=== PATIENT | male | born 1950 | race Caucasian/White ===

== ENCOUNTER → 2023-12-09 15:03 | Outpatient (REF) | payer MEDICARE, BC, SELFPAY ==
[2023-12-09 16:09] LABS: % Eosinophils 4.5 % (0-6); % Immature Granulocytes 0.5 % (0-0.5); % Lymphocytes 26.3 % (20.5-51.1); % Monocytes 11.5 % (1.7-9.3); % Neutrophils 56.2 % (42.2-75.2); Absolute Basophils 0.1 10^3/uL (0-0.2); Absolute Eosinophils 0.3 10^3/uL (0-0.7); Absolute Lymphocytes 1.9 10^3/uL (1.2-3.4); Absolute Monocytes 0.8 10^3/uL (0.1-0.6); Absolute Neutrophils 4.1 10^3/uL (1.4-6.5); Hematocrit 39.3 % (39.0-52.0); Hemoglobin 13.3 g/dL (13.0-18.0); Mean Corp Hgb Conc. 33.8 g/dL (33.0-37.0); Mean Corpuscular Hgb 31.6 pg (27.0-31.0); Mean Corpuscular Volume 93.3 fL (80.0-94.0); Mean Platelet Volume 11.1 fL (7.4-10.4); Nucleated Red Blood Cells % 0 % (-); Platelet Count 232 10^3/uL (130-400); Red Blood Cell Count 4.21 10^6/uL (4.70-6.10); Red Cell Dist. Width 13.1 % (11.5-14.5); White Blood Cell Count 7.3 10^3/uL (4.8-10.8)
[2023-12-09 16:58] LABS: Blood Urea Nitrogen 22 mg/dl (9-20); Calcium 9.5 mg/dl (8.4-10.2); Carbon Dioxide 32 mmol/L (22-30); Chloride 97 mmol/L (98-107); Glucose 91 mg/dl (70-99); Potassium 4.2 mmol/L (3.5-5.1); Sodium 139 mmol/L (135-145); eGFR > 60.00
== END ==
LOC: REG 15:03
PROVIDERS: ATTENDING PHYSICIAN Specialist
DX: Z01.818 Encounter for other preprocedural examination (principal)
CPT/HCPCS: 36415; 80048; 85025

== ENCOUNTER 2024-11-13 06:03 | Day surgery (SDC) | payer MEDICARE, BC, SELFPAY ==
[2024-10-20 10:42] LABS: Hematocrit 37.9 % (39.0-52.0); Hemoglobin 12.6 g/dL (13.0-18.0); Mean Corp Hgb Conc. 33.2 g/dL (33.0-37.0); Mean Corpuscular Hgb 31.1 pg (27.0-31.0); Mean Corpuscular Volume 93.6 fL (80.0-94.0); Mean Platelet Volume 11.1 fL (7.4-10.4); Platelet Count 246 10^3/uL (130-400); Red Blood Cell Count 4.05 10^6/uL (4.70-6.10); Red Cell Dist. Width 13.1 % (11.5-14.5); White Blood Cell Count 5.3 10^3/uL (4.8-10.8)
[2024-10-20 11:19] LABS: ALT (SGPT) 21 U/L (0-50); AST (SGOT) 27 U/L (17-59); Albumin 4.2 g/dl (3.5-5.0); Alkaline Phosphatase 87 U/L (38-126); Blood Urea Nitrogen 17 mg/dl (9-20); Calcium 9.2 mg/dl (8.4-10.2); Carbon Dioxide 30 mmol/L (22-30); Chloride 101 mmol/L (98-107); Glucose 171 mg/dl (70-99); Potassium 4.5 mmol/L (3.5-5.1); Sodium 140 mmol/L (135-145); Total Bilirubin 0.6 mg/dl (0.2-1.3); eGFR > 60.00
[2024-10-20 13:52] VITALS: BMI 27.0
--- NOTE | 2024-10-30 15:36 | VNURNOTE ---
[facility] liaison called patient to review [facility] joint protocol and post op plans. No answer, left message. Referral in [facility].
--- NOTE | 2024-11-06 12:07 | VNURNOTE ---
Patient is scheduled for an elective R TKA on 11/13/24- he is a same day patient with Dr Peralta. Spoke with patient prior to surgery. Introduced role of [facility] Liaison. Patient reports that he lives with sig other in a second floor apartment.
There are 4 steps to enter and a flight of steps (12-15) to the apartment.
patient has a rolling walker.
PCP is Dr Buchanan.
Discussed [facility] joint protocol and post surgical plans.
Reviewed that he will have VN services initially and will then start outpatient PT.
Patient selects [facility] for his home care needs and will go to [facility] for outpatient PT. Patient thinks he's scheduled for 11/17.
Patient is in agreement with plan and states that sig other will be home with him. Advised to bring RW with him day of surgery. Referral [facility] in [facility].
Plan: [facility] per [facility] joint protocol then outpt PT on 11/17
[2024-11-07 12:04] VITALS: BMI 27.0
[2024-11-13] VITALS (12 sets, daily range): BP systolic 122–150; BP diastolic 59–79; BMI 27.0
[2024-11-13] MEDS: NORMOSOL-R/PLASMALYTE-A 1000 IV (06:28)
[2024-11-13] MEDS: CELEBREX 200 MG PO (06:28)
[2024-11-13] MEDS: TYLENOL 650 MG PO (06:28)
--- NOTE | 2024-11-13 07:13 | W.DS.TRANS ---
DC Summary - [employer]
-
Discharge Instructions:
Sleep Apnea Risk Intermediate
Discharge Diagnosis/Procedures Right knee replacement 11/13/24
Diet No restrictions,As tolerated
Activity As tolerated,With Walker
Driving Restrictions No driving
Bathing Restrictions OK to Shower
Other Services PT
Wound Care Aquacel dressing in place 7-10 days then
incision open to air
Instructions:
Stand-Alone Forms: SDS Total Hip and Knee D/C
Changes to Home Medications: Yes
Discharge Medications:
DC Medications w/original date entered in [facility]
dronedarone 400 mg tablet (Multaq) 400 mg PO BID 12/08/21
finasteride 5 mg tablet 5 mg PO DAILY 12/08/21
omega 4-pyo-vwj-fish oil 1,000 mg (120 mg-180 mg) capsule (Fish Oil) 1,000 mg PO BID 12/08/21
omeprazole 40 mg capsule,delayed release 40 mg PO DAILY 12/08/21
potassium chloride 10 mEq capsule,extended release 10 meq PO Q48H 12/08/21
tamsulosin 0.4 mg capsule (Flomax) 0.8 mg PO HS 12/08/21
arginine 1,000 mg-B12 16.6 mcg-folic acid 66.6 mcg-B6 3.3 mg tablet (L-Arginine Interlude's My Healthy World) 1 tab PO BID 11/07/24
carvedilol 25 mg tablet 25 mg PO BID 11/07/24
famotidine 20 mg tablet 20 mg PO DAILY 11/07/24
furosemide 40 mg tablet 40 mg PO DAILY 11/07/24
magnesium 250 mg tablet 250 mg PO DAILY 11/07/24
sfkbsbkx-iz-whfxy 300 mcg-K 60 mcg-lycop 600 mcg-lutein 300 mcg tablet (Centrum Silver Men) 1 tab PO DAILY 11/07/24
acetaminophen 500 mg capsule 1,000 mg (2 x 500 mg) PO Q6H PRN Pain #60 caps 11/13/24
apixaban 5 mg tablet (Eliquis) 2.5 mg (1/2 x 5 mg) PO BID Blood clot prevention/tx #0 tabs 11/13/24
dexamethasone 4 mg tablet 4 mg PO BID #7 tabs 11/13/24
docusate sodium 100 mg capsule (Colace) 100 mg PO BID #14 caps 11/13/24
mupirocin 2 % topical ointment 1 applic topical BID 11/13/24
ondansetron 4 mg disintegrating tablet 4 mg PO Q8H #14 tabs 11/13/24
oxycodone 5 mg tablet 5 mg PO Q6H PRN Pain #30 tabs 11/13/24
sennosides 8.6 mg tablet (Senokot) 8.6 mg PO BID PRN Constipation #14 tabs 11/13/24
Home Medication Changes
apixaban 5 mg tablet (Eliquis) 2.5 mg (1/2 x 5 mg) PO BID Blood clot prevention/tx #0 tabs 11/13/24
dexamethasone 4 mg tablet 4 mg PO BID #7 tabs 11/13/24
docusate sodium 100 mg capsule (Colace) 100 mg PO BID #14 caps 11/13/24
mupirocin 2 % topical ointment 1 applic topical BID 11/13/24
ondansetron 4 mg disintegrating tablet 4 mg PO Q8H #14 tabs 11/13/24
oxycodone 5 mg tablet 5 mg PO Q6H PRN Pain #30 tabs 11/13/24
sennosides 8.6 mg tablet (Senokot) 8.6 mg PO BID PRN Constipation #14 tabs 11/13/24
Pending Results: No
[2024-11-13] MEDS: DILAUDID 0.25 MG IV ×3 (09:11→09:39)
[2024-11-13] MEDS: ROXICODONE 5 MG PO (10:34)
[2024-11-13] MEDS: ANCEF 5 IV (10:56)
== END 2024-11-13 11:51 | disposition home or self-care (01) ==
LOC: SDS 06:03
PROVIDERS: ATTENDING PHYSICIAN Specialist; FAMILY PHYSICIAN Internal Medicine Geriatric Medicine; REFERRING PHYSICIAN Internal Medicine Cardiovascular Disease
DX: M17.11 Unilateral primary osteoarthritis, right knee (principal)
CPT/HCPCS: 27447; 36415; 73560; 80053; 83036; 85027; 87070; 97162; C1713; C1776

== ENCOUNTER → 2025-06-21 11:58 | Outpatient (REF) | payer BC, SELFPAY | LOC: HWRCS 11:58 | PROVIDERS: ATTENDING PHYSICIAN Internal Medicine Cardiovascular Disease; FAMILY PHYSICIAN Internal Medicine Geriatric Medicine | DX: I48.19 Other persistent atrial fibrillation (principal); I10 Essential (primary) hypertension; R94.31 Abnormal electrocardiogram [ECG] [EKG]; R60.0 Localized edema; R06.09 Other forms of dyspnea; R00.2 Palpitations | CPT/HCPCS: 78452; 93017; A9500; J2785 ==

== ENCOUNTER → 2025-08-02 09:06 | Outpatient (REF) | payer MEDICARE, BC, SELFPAY | LOC: RSP 09:06 | PROVIDERS: ATTENDING PHYSICIAN Nurse Practitioner Family | DX: R06.09 Other forms of dyspnea (principal) | CPT/HCPCS: 94060 ==

== ENCOUNTER → 2025-08-10 08:19 | Outpatient (REF) | payer MEDICARE, BC, SELFPAY ==
[2025-08-10 10:28] LABS: Hematocrit 39.0 % (39.0-52.0); Hemoglobin 12.5 g/dL (13.0-18.0); Mean Corp Hgb Conc. 32.1 g/dL (33.0-37.0); Mean Corpuscular Volume 92.6 fL (80.0-94.0); Nucleated Red Blood Cells % 0 % (-); Platelet Count 248 10^3/uL (130-400); Red Cell Dist. Width 13.7 % (11.5-14.5)
[2025-08-10 10:37] LABS: Glycohemoglobin (HgbA1c) 6.1 % (4.0-5.6)
[2025-08-10 10:50] LABS: CRP, Ultra Sensitive 6.44 mg/L (0.30-5.00)
[2025-08-10 11:07] LABS: ALT (SGPT) 22 U/L (0-50); AST (SGOT) 24 U/L (17-59); Albumin 4.4 g/dl (3.5-5.0); Alkaline Phosphatase 85 U/L (38-126); Blood Urea Nitrogen 18 mg/dl (9-20); Calcium 9.3 mg/dl (8.4-10.2); Carbon Dioxide 31 mmol/L (22-30); Chloride 104 mmol/L (98-107); Glucose 113 mg/dl (70-99); HDL Cholesterol 41 mg/dl; LDL Cholesterol, Calculated 98 mg/dl; Potassium 4.6 mmol/L (3.5-5.1); Sodium 140 mmol/L (135-145); Total Protein 7.6 g/dl (6.3-8.2); Very Low Density Lipoprotein 12 mg/dl (0-30); eGFR > 60.00
== END ==
LOC: REG 08:19
PROVIDERS: ATTENDING PHYSICIAN Nurse Practitioner Family; REFERRING PHYSICIAN Internal Medicine Cardiovascular Disease
DX: K21.9 Gastro-esophageal reflux disease without esophagitis (principal); R11.0 Nausea; K40.90 Unilateral inguinal hernia, without obstruction or gangrene, not specified as recurrent; I10 Essential (primary) hypertension; I48.0 Paroxysmal atrial fibrillation; Z87.891 Personal history of nicotine dependence; R73.03 Prediabetes
CPT/HCPCS: 36415; 80053; 80061; 83036; 84443; 85025; 85652; 86141

== ENCOUNTER → 2025-08-20 07:38 | Outpatient (REF) | payer MEDICARE, BC, SELFPAY ==
[2025-08-20 09:23] LABS: Hematocrit 39.6 % (39.0-52.0); Hemoglobin 12.9 g/dL (13.0-18.0); Mean Corp Hgb Conc. 32.6 g/dL (33.0-37.0); Mean Corpuscular Volume 94.1 fL (80.0-94.0); Nucleated Red Blood Cells % 0 % (-); Platelet Count 247 10^3/uL (130-400); Red Cell Dist. Width 13.7 % (11.5-14.5)
[2025-08-20 10:07] LABS: ALT (SGPT) 21 U/L (0-50); AST (SGOT) 26 U/L (17-59); Albumin 4.2 g/dl (3.5-5.0); Alkaline Phosphatase 86 U/L (38-126); Blood Urea Nitrogen 18 mg/dl (9-20); Calcium 9.1 mg/dl (8.4-10.2); Carbon Dioxide 32 mmol/L (22-30); Chloride 103 mmol/L (98-107); Glucose 101 mg/dl (70-99); Iron 101 ug/dl (49-181); Potassium 4.4 mmol/L (3.5-5.1); Sodium 140 mmol/L (135-145); Total Protein 7.4 g/dl (6.3-8.2); eGFR > 60.00
[2025-08-20 10:16] LABS: Total Iron Binding Capacity 384 ug/dl (261-462)
[2025-08-20 10:33] LABS: Ferritin 12.7 ng/ml (17.9-464.0)
== END ==
LOC: REG 07:38
PROVIDERS: ATTENDING PHYSICIAN Nurse Practitioner Family
DX: Z79.01 Long term (current) use of anticoagulants (principal); I10 Essential (primary) hypertension; D64.9 Anemia, unspecified
CPT/HCPCS: 36415; 80053; 82728; 83540; 83550; 85025

== ENCOUNTER 2025-08-30 10:31 | Inpatient (IN) | payer MEDICARE, BC, SELFPAY ==
[2025-08-30] VITALS (27 sets, daily range): BP systolic 117–186; BP diastolic 62–98; PULSE 2–91; BMI 25.0
--- NOTE | 2025-08-30 07:04 | ED.GENMED ---
History of Present Illness
<Gopi Celaya PA-C - Last Filed: 08/30/25 13:27>
General
Chief Complaint: Breathing Problem
Time Seen by Provider: 08/30/25 06:55
History of Present Illness
History of Present Illness:
75-year-old male with history of paroxysmal A-fib on Eliquis, hypertension, hyperlipidemia, and GERD presents to the emergency department for evaluation of shortness of breath and a productive cough for the past 3 days, spouse states that it became
dramatically worsened overnight. On arrival the patient's acute respiratory distress with 2-3 word dyspnea and audible crackles. He denies chest pain. No history of CHF. Did reportedly have pulmonary function testing performed approximately 1
month ago at this hospital. Prior smoker, 6 pack years. No fevers or chills.
Past History
<Gopi Celaya PA-C - Last Filed: 08/30/25 13:27>
Past History
ED Past Medical History: Arrthythmia, HTN and Hypercholesterolemia
ED Past Surgical History: Other
Social History
Tobacco: Former smoker
Drug: None
Personal: Single
Living: with family
Employment: Retired
Family History
Family History: Other
Review of Systems
<Gopi Celaya PA-C - Last Filed: 08/30/25 13:27>
Review of Systems
Allergies reviewed?: Yes
All Other Systems: ROS reviewed and negative except as documented in HPI and ROS
Phy Exam
<Gopi Celaya PA-C - Last Filed: 08/30/25 13:27>
Physical Exam
Physical Exam:
GEN: Ill-appearing in acute respiratory distress
HEENT: Oral mucosa moist, no scleral icterus
Cardiac: Regular rate, unable to auscultate due to send
Normal respiratory effort/lung sounds
Lung: Tachypneic with accessory muscle use audible crackles, crackles heard throughout all lung jo
MSK: No gross deformity or injuries
Skin: Good color, no pallor or jaundice, no rashes
Neuro: AO x3, moves all extremities freely
Psych: Appears anxious
Scores
<Gopi Celaya PA-C - Last Filed: 08/30/25 13:27>
Heart Failure Risk
Heart Failure Risk Score: Not Applicable
Course
<Gopi Celaya PA-C - Last Filed: 08/30/25 13:27>
Orders/Labs/Results
Orders:
Orders
08/30/25 07:00
EKG [Electrocardiogram (*1)] Stat
Reason for Study: Chest Pain
Blood Culture Q30M
JULIAN Source: Blood/Venous
Specimen Description:
CR Chest Portable - 1 View Urgent
Comment:
Reason For Exam: SOB
Reason Study Needs to be Portable: Patient Unstable
08/30/25 07:01
EKG- Treatment ONCE
Ipratropium/Albuterol Sulfate [Duoneb] 3 ml INH R NOW ONE
08/30/25 07:03
Ipratropium/Albuterol Sulfate [Duoneb] 3 ml .ROUTE .STK-MED ONE
Nitroglycerin 100 mg/250 ml [Nitroglycerin Premix] 100 mg in 250 ml .ROUTE .STK-MED
08/30/25 07:15
Nitroglycerin 100 mg/250 ml [Nitroglycerin Premix] 100 mg in 250 ml IV PER PROTOCOL
Initial dose in mcg/min, then titrate:: 20
Titrate to keep:: Other
Titrate to keep other:: BP <140; improved WOB
Titrate by mcg/min:: 5 mcg/min, may increase by 10 mcg/min if dose > 20 mcg/min
Frequency of titrations (minutes):: every 3-5 minutes
Maximum dose in mcg/min:: 200
Begin to taper infusion when:: Remained at goal for 2hrs
Taper by mcg/min:: 5 mcg/min
Frequency of taper (minutes) if patient maintains goal:: 30
Taper to off?: Yes
If infusion off & no longer maintaining goal:: Contact Provider
08/30/25 07:21
COVID-19 Antigen Urgent
Source: Nasal Swab
Complete Blood Count/With Diff Urgent
Comprehensive Metabolic Panel Urgent
NT-proBNP Urgent
Troponin I Urgent
Venous Blood Gas Urgent
%Oxygen/Room Air: 94
Influenza A+B Rapid Molecular Urgent
JULIAN Source: Nasal Swab
Specimen Description:
08/30/25 07:29
Furosemide [Lasix] 40 mg .ROUTE .STK-MED ONE
08/30/25 07:32
Furosemide [Lasix] 40 mg IV NOW STA
08/30/25 08:15
CefTRIAXone [Rocephin] 1,000 mg IV NOW STA
08/30/25 08:17
Dexamethasone Sod Phosphate [Decadron] 8 mg IV NOW STA
Ipratropium/Albuterol Sulfate [Duoneb] 3 ml INH R NOW STA
08/30/25 08:23
Lactic Acid Q4H
Comment: CANCEL 2nd LACTIC ACID IF 1st LACTIC ACID IS LESS THAN 2
Blood Culture Q30M
JULIAN Source: Blood/Venous
Specimen Description:
08/30/25 08:26
Sterile Water [Sterile Water For Injection] 20 ml .ROUTE .STK-MED
08/30/25 09:14
Echo 2D MMode Color/Doppler Routine
Reason for Study: SOB
PULMONARY CONSULT Routine
Consulting Provider: Sarah Ventura
Was physician already notified: Yes
Reason for consult: Resp failure
08/30/25 10:12
Admit/Transfer Patient As Directed
Co-Sign Provider:
Level of Care: Inpatient admission
Assign to:: IMU- Intermediate Care
Physician / Group: hospitalist
Diagnosis: resp failure
Reason for Hospitalization: resp failure
Expected length of stay greater than two midnights?: Yes
ELOS- Estimated Length of Stay in days: 2
I certify the patient meets the requirements for IP care: Yes
PRN Pain Medication Management As Directed
May give lesser potent ordered pain med per pt: Yes
preference::
Protocol:: Medication orders for pain may be administered in a
manner that supports deferring to patient preference
when the pt is:
- Requesting an ordered lesser potent pain medication.
Least to most potent pain medications are defined
as: acetaminophen < NSAID < tramadol < opioids
(morphine, oxycodone, hydromorphone).
- Requesting a lesser dose of the same medication IF
ORDERED.
- Requesting a less intrusive route of administration
if both routes are prescribed by the provider (PO <
IV).
08/30/25 12:15
Famotidine [Pepcid] 20 mg PO DAILY
Finasteride [Proscar] 5 mg PO DAILY
omeprazole 40 mg PO DAILY
08/30/25 20:00
Tamsulosin [Flomax] 0.4 mg PO BID
08/31/25 10:12
Ferrous Sulfate [Feosol] 325 mg PO MOWEFR
Abnormal Lab Results
08/30/25
07:21
WBC 11.8 H 10^3/uL
(4.8-10.8)
RBC 4.41 L 10^6/uL
(4.70-6.10)
MPV 10.9 H fL
(7.4-10.4)
Absolute Neuts (auto) 8.7 H 10^3/uL
(1.4-6.5)
Absolute Monos (auto) 1.1 H 10^3/uL
(0.1-0.6)
Lymphocytes % 10.7 L %
(20.5-51.1)
Monocytes % 9.7 H %
(1.7-9.3)
VBG pCO2 54 H mmHg
(35-48)
VBG pO2 128 H mmHg
(30-50)
VBG HCO3 28.5 H mmol/L
(22-27)
Glucose 120 H mg/dl
(70-99)
Total Protein 8.3 H g/dl
(6.3-8.2)
08/30/25 07:21
08/30/25 07:21
Vital Signs
Initial and Last Documented VS:
Initial Vital Signs
Pulse Resp BP Pulse Ox
64 20 174/84 94
08/30/25 06:51 08/30/25 06:51 08/30/25 06:51 08/30/25 06:51
Last Documented Vital Signs
Temp Pulse Resp BP Pulse Ox
98.2 F 94 33 172/93 92
08/30/25 07:00 08/30/25 12:36 08/30/25 11:00 08/30/25 12:36 08/30/25 11:00
<Leobardo Phillips MD - Last Filed: 08/30/25 09:39>
Orders/Labs/Results
Orders:
Orders
08/30/25 07:00
EKG [Electrocardiogram (*1)] Stat
Reason for Study: Chest Pain
Blood Culture Q30M
JULIAN Source: Blood/Venous
Specimen Description:
CR Chest Portable - 1 View Urgent
Comment:
Reason For Exam: SOB
Reason Study Needs to be Portable: Patient Unstable
08/30/25 07:01
EKG- Treatment ONCE
Ipratropium/Albuterol Sulfate [Duoneb] 3 ml INH R NOW ONE
08/30/25 07:03
Ipratropium/Albuterol Sulfate [Duoneb] 3 ml .ROUTE .STK-MED ONE
Nitroglycerin 100 mg/250 ml [Nitroglycerin Premix] 100 mg in 250 ml .ROUTE .STK-MED
08/30/25 07:15
Nitroglycerin 100 mg/250 ml [Nitroglycerin Premix] 100 mg in 250 ml IV PER PROTOCOL
Initial dose in mcg/min, then titrate:: 20
Titrate to keep:: Other
Titrate to keep other:: BP <140; improved WOB
Titrate by mcg/min:: 5 mcg/min, may increase by 10 mcg/min if dose > 20 mcg/min
Frequency of titrations (minutes):: every 3-5 minutes
Maximum dose in mcg/min:: 200
Begin to taper infusion when:: Remained at goal for 2hrs
Taper by mcg/min:: 5 mcg/min
Frequency of taper (minutes) if patient maintains goal:: 30
Taper to off?: Yes
If infusion off & no longer maintaining goal:: Contact Provider
08/30/25 07:21
COVID-19 Antigen Urgent
Source: Nasal Swab
Complete Blood Count/With Diff Urgent
Comprehensive Metabolic Panel Urgent
NT-proBNP Urgent
Troponin I Urgent
Venous Blood Gas Urgent
%Oxygen/Room Air: 94
Influenza A+B Rapid Molecular Urgent
JULIAN Source: Nasal Swab
Specimen Description:
08/30/25 07:29
Furosemide [Lasix] 40 mg .ROUTE .STK-MED ONE
08/30/25 07:32
Furosemide [Lasix] 40 mg IV NOW STA
08/30/25 08:15
CefTRIAXone [Rocephin] 1,000 mg IV NOW STA
08/30/25 08:17
Dexamethasone Sod Phosphate [Decadron] 8 mg IV NOW STA
Ipratropium/Albuterol Sulfate [Duoneb] 3 ml INH R NOW STA
08/30/25 08:23
Lactic Acid Q4H
Comment: CANCEL 2nd LACTIC ACID IF 1st LACTIC ACID IS LESS THAN 2
Blood Culture Q30M
JULIAN Source: Blood/Venous
Specimen Description:
08/30/25 08:26
Sterile Water [Sterile Water For Injection] 20 ml .ROUTE .STK-MED
08/30/25 09:14
Echo 2D MMode Color/Doppler Routine
Reason for Study: SOB
PULMONARY CONSULT Routine
Consulting Provider: Sarah Ventura
Was physician already notified: Yes
Reason for consult: Resp failure
08/30/25 10:12
Admit/Transfer Patient As Directed
Co-Sign Provider:
Level of Care: Inpatient admission
Assign to:: IMU- Intermediate Care
Physician / Group: hospitalist
Diagnosis: resp failure
Reason for Hospitalization: resp failure
Expected length of stay greater than two midnights?: Yes
ELOS- Estimated Length of Stay in days: 2
I certify the patient meets the requirements for IP care: Yes
PRN Pain Medication Management As Directed
May give lesser potent ordered pain med per pt: Yes
preference::
Protocol:: Medication orders for pain may be administered in a
manner that supports deferring to patient preference
when the pt is:
- Requesting an ordered lesser potent pain medication.
Least to most potent pain medications are defined
as: acetaminophen < NSAID < tramadol < opioids
(morphine, oxycodone, hydromorphone).
- Requesting a lesser dose of the same medication IF
ORDERED.
- Requesting a less intrusive route of administration
if both routes are prescribed by the provider (PO <
IV).
08/30/25 12:15
Famotidine [Pepcid] 20 mg PO DAILY
Finasteride [Proscar] 5 mg PO DAILY
omeprazole 40 mg PO DAILY
08/30/25 20:00
Tamsulosin [Flomax] 0.4 mg PO BID
08/31/25 10:12
Ferrous Sulfate [Feosol] 325 mg PO MOWEFR
Abnormal Lab Results
08/30/25
07:21
WBC 11.8 H 10^3/uL
(4.8-10.8)
RBC 4.41 L 10^6/uL
(4.70-6.10)
MPV 10.9 H fL
(7.4-10.4)
Absolute Neuts (auto) 8.7 H 10^3/uL
(1.4-6.5)
Absolute Monos (auto) 1.1 H 10^3/uL
(0.1-0.6)
Lymphocytes % 10.7 L %
(20.5-51.1)
Monocytes % 9.7 H %
(1.7-9.3)
VBG pCO2 54 H mmHg
(35-48)
VBG pO2 128 H mmHg
(30-50)
VBG HCO3 28.5 H mmol/L
(22-27)
Glucose 120 H mg/dl
(70-99)
Total Protein 8.3 H g/dl
(6.3-8.2)
08/30/25 07:21
08/30/25 07:21
Vital Signs
Initial and Last Documented VS:
Initial Vital Signs
Pulse Resp BP Pulse Ox
64 20 174/84 94
08/30/25 06:51 08/30/25 06:51 08/30/25 06:51 08/30/25 06:51
Last Documented Vital Signs
Temp Pulse Resp BP Pulse Ox
98.2 F 94 33 172/93 92
08/30/25 07:00 08/30/25 12:36 08/30/25 11:00 08/30/25 12:36 08/30/25 11:00
<Gopi Celaya PA-C - Last Filed: 08/30/25 13:27>
MDM/Problems Addressed
MDM/Problems Addressed:
Due to the audible crackles and peripheral edema patient was started promptly on BiPAP and nitroglycerin IV on arrival to the exam room. This did not improve his clinical presentation. Chest x-ray is not overly suggestive of pulmonary edema and
labs do not strongly suggest acute CHF. He is anticoagulated thus do not suspect PE. Does not have overt signs or symptoms of infectious etiology. Did have recent pulmonary function testing suggestive of underlying chronic lung disease. At this
time the patient is quite mottled and may be multifactorial as the patient will be maintained on BiPAP and nitro and will add empiric antibiotics plus bronchodilators and steroids, will be admitted for further management
<Gopi Celaya PA-C - Last Filed: 08/30/25 13:27>
Comment
Comment:
EKG independently interpreted by me reveals a normal sinus rhythm at a rate of [address] depressions anterior laterally, QTc is borderline at 480
*Pulse Oximetry
SaO2: 94
Oxygen Mode of Delivery: Room air
Patient hypoxic: no
*Critical Care Note
Total Time (30-74mins, 75-104mins- exclusive of procedures): 60 minutes
comment:
Critical care time: 60 minutes
Critical care time was exclusive of: Separately billable procedures, treating other patients, and teaching time
Critical care was necessary to treat or prevent imminent or life-threatening deterioration of the following conditions: Acute respiratory failure
Critical care time spent personally by me on the following activities:
[x] Review of old charts
[x] Obtaining history from patient or surrogate
[x] Ordering and review of the laboratory studies
[x] Ordering and review of radiographic studies
[x] Ordering and performing treatments and interventions
[x] Patient patient's response to treatment
[x] Development of treatment plan with patient or surrogate
<Gopi Celaya PA-C - Last Filed: 08/30/25 13:27>
Update Note
Update Note:
0716: ASSISTANT DEAN [employer]UD[employer] at bedside for bipap. Will start 10/13 at 40% FiO2. Nitro infusing by RN
ED Attending Note
<Gopi Celaya PA-C - Last Filed: 08/30/25 13:27>
-
Portions of this chart may have been created with voice recognition software.� Occasional wrong word or��sound alike� substitutions may have occurred due to the inherent limitations of voice recognition software.
<Leobardo Phillips MD - Last Filed: 08/30/25 09:39>
ED Attending Note
Patient seen and examined by attending physician: Yes
I performed the substantive portion of visit, reviewed & personally made and approve the management plan that is documented in note by myself or LEIDY.: Yes
ED Attending Note:
75-year-old male with shortness of breath. Started mildly in the last 24 to 36 hours. Much worse in the last 12 hours. No chest pain no pleuritic pain. History of respiratory issues in the past.
On exam patient is moderately to significantly tachypneic with retractions and significant work of breathing. He has diffuse expiratory wheezing and rhonchi with basilar rales. He is pale. Regular rate and rhythm. Pulse ox reasonable on
supplemental oxygen. Warm and dry. Extremities are unremarkable.
Chest x-ray is mildly full with a questionable right subhilar infiltrate. EKG has nonspecific ischemic changes.
Possibilities include pulmonary edema early onset versus respiratory related issue. Currently being treated for both. Nitroglycerin for elevated blood pressure, BiPAP, nebulizers. Clearly warrants admission. Discussed with patient and .
0730... Rechecked on BiPAP. Is tolerating well and appears to be improving
0820.... Patient again appears moderately comfortable on the BiPAP. Pulse ox however is only 91 to 92%. Still expiratory wheezing and rhonchi. This is looking more like a respiratory issue versus cardiac issue. Chest x-ray does not show obvious
CHF. proBNP is stable. Troponin is normal. Will treat as a probable pneumonia. Also steroids and repeat nebulizers.
CC=45 minutes
Discharge Plan
Departure
Patient Disposition: Admit
Date of Disposition: 08/30/25
Time of Disposition: 08:16
Admit to: IMU
Presentation/result/management discussed w/ accepting MD/DO: Hospitalist
Discharge Problem:
Acute respiratory failure
Interventions
Interventions:
*Risk Screen - Suicide Last Done: 08/30/25 06:51
*General Assessment Last Done: 08/30/25 07:24
*Neglect/Abuse Screening Last Done: 08/30/25 06:51
*ED- Fall Risk Assessment Last Done: 08/30/25 07:24
*ED COVID-19 Vaccine History Last Done: 08/30/25 07:24
*ED Influenza Vaccine History Last Done: 08/30/25 07:24
*Nursing Disposition Last Done: 08/30/25 12:15
ED- Cardiac Assessment Last Done: 08/30/25 07:25
ED- Pulmonary Assessment Last Done: 08/30/25 07:25
Discharge Date and Time
Discharge Date/Time: 08/30/25 12:15
[2025-08-30] MEDS: NITROGLYCERIN PREMIX 20 IV (07:05)
[2025-08-30] MEDS: DUONEB 3 ML INH ×3 (07:05→11:54)
[2025-08-30] MEDS: LASIX 40 MG IV ×2 (07:33→12:36)
[2025-08-30 07:35] LABS: Hematocrit 40.3 % (39.0-52.0); Hemoglobin 13.5 g/dL (13.0-18.0); Mean Corp Hgb Conc. 33.5 g/dL (33.0-37.0); Mean Corpuscular Volume 91.4 fL (80.0-94.0); Nucleated Red Blood Cells % 0.2 % (-); Platelet Count 256 10^3/uL (130-400); Red Cell Dist. Width 13.6 % (11.5-14.5)
[2025-08-30 07:36] LABS: Venous Blood Gas B.E. 1.4 mmol/L (-4 to +4); Venous Blood Gas O2 Sat % 99.3 %
[2025-08-30 07:51] LABS: COVID-19 Antigen Negative (Negative)
[2025-08-30 07:59] LABS: ALT (SGPT) 21 U/L (0-50); AST (SGOT) 24 U/L (17-59); Albumin 4.7 g/dl (3.5-5.0); Alkaline Phosphatase 103 U/L (38-126); Blood Urea Nitrogen 13 mg/dl (9-20); Calcium 9.2 mg/dl (8.4-10.2); Carbon Dioxide 27 mmol/L (22-30); Chloride 106 mmol/L (98-107); Estimated Creatinine Clearance 94 ml/min; Glucose 120 mg/dl (70-99); Potassium 4.1 mmol/L (3.5-5.1); Sodium 138 mmol/L (135-145); Total Protein 8.3 g/dl (6.3-8.2); eGFR > 60.00
[2025-08-30 08:12] LABS: Troponin I < 0.012 ng/ml
[2025-08-30] MEDS: DECADRON 8 MG IV (08:34)
[2025-08-30] MEDS: ROCEPHIN 1000 MG IV (08:41)
--- NOTE | 2025-08-30 09:09 | W.PN.UPDATE ---
Update Note
Progress Note Update
Seen and examined the patient. Agree with the plan formulated by the resident. See changes in my documentation
75-year-old male with shortness of breath for the past 3 days got worse overnight.
Patient denied any fever or chest pain he had some mucoid sputum but had some frothy sputum in the ER per discussion with ER attending at bedside. He had no sick contacts. Reportedly his Lasix was discontinued. I texted his PCP who stated that
cardiology has discontinued. On reviewing outpatient cardiology notes it stays from 08/16/2025 to continue Lasix 40 mg p.o. daily. Unclear when and who has stopped this. Patient had stress test in June. He also was seen by Dr. Lopez and had
pulmonary function testing done recently.
Chest x-ray reviewed by me-opacity in the right hilar area
Echo November 2021-LVH, biatrial enlargement, mild to moderate MR
EKG-sinus rhythm nonspecific ST-T changes
# Acute hypoxic respiratory failure
Continue BiPAP, adjust settings to keep patient's sats stable
Cardiac versus pulmonary
Covid neg, Flu neg
ABG noted
Possible pneumonia also rule out heart failure
Doubt thromboembolic given exam findings and also being on Eliquis
proBNP 828
Initial troponin less than 0.01, continue to trend
Per cardiology notes patient had TTE in June 22, 2025 which ruled out overt cardiomyopathy, ventricular dysfunction and heart disease and significant valvular heart disease. I do not have an echo report.
He also had a pharmacologic nuclear cardiac stress test-ruled out inducible myocardial ischemia/obstructive coronary disease-June 2025.
Continue daily Lasix, I would also continue with antibiotics, steroids, nebulizer treatments
Pulmonary and cardiology consultations
Outpatient records from PCP office as well as Dr. Tai reviewed
# Paroxysmal atrial fibrillation with history of cardioversion in the past in 2021-on Coreg ,Multaq and Eliquis as outpatient
Had a telecommunications specialist in May 2025 demonstrated-no A-fib/a flutter and 9.1% burden of PACs
Because of his lower extremity edema Cardizem was discontinued and changed to Coreg.
# Hypertension-on Coreg as outpatient
# Enlarged prostate-continue finasteride, Flomax
# History of nephrolithiasis
# GERD-continue PPI
# Pj-lknrbx-ymjl in
# Former alcohol use-sober since 2008
# DVT prophylaxis-Eliquis
# CODE STATUS- FULL code
Discussed with at bedside
Discussed with outpatient PCP
Discussed with ER attending at bedside
Discussed with ER nursing
Discussed with respiratory therapy
Critical care time spent 40 minutes
total admission time more than 75 min
Part of this note was created using voice recognition system. Occasional wrong word or��sound alike� substitutions may have inadvertently occurred due to the inherent limitations of voice recognition software. If noted kindly bring it to my
attention for correction.
--- NOTE | 2025-08-30 10:52 | HPS.HSE ---
Addendum entered and electronically signed by Fabiola Couch MD 08/30/25 12:55:
Seen and examined the patient with the resident. Plan formulated together.
See separate documentation for changes.
Original Note:
Family Physician
-
Family Physician: Mika Buchanan
Chief Complaint
-
Dyspnea
History of Present Illness
75-year-old male with past medical history of paroxysmal A-fib, hypertension, hyperlipidemia, GERD, BPH presented to the ER with shortness of breath that started 4 days ago. It is associated with productive cough producing mucoid sputum, dyspnea
was intermittent in the beginning with exertion, and it has worsened in the past 2 days. Patient denies chest pain, palpitations, headaches, fever/chills, abdominal pain, nausea/vomiting, diarrhea. No sick contacts. Patient has lower extremity
edema , was seen by his cable tender on 08/16/2025, his diltiazem discontinued. Patient also reports that he discontinued his home furosemide 5 days ago.
ER course�patient was started on BiPAP and nitroglycerin IV, due to crackles and peripheral edema. Labs with white count 11.8, normal renal function, normal electrolytes. COVID-negative. proBNP at 828. Chest x-ray with evidence of opacities in
the right infrahilar region, suspicious for pneumonia.
Medical History
Past Medical History
Past Medical History: Reports Arrhythmia, GERD, HTN and Hypercholesterolemia
Additional Past Medical History:
BPH, lower extremity edema
Past Surgical History: Reports Orthopedic
Social History
Tobacco: Former Smoker
Alcohol: Former
Drug: None
Personal:
Living: With Family
Employment: Retired
Family History
Family History: Not pertinent
Allergies / Home Medications
Allergies reflects when Allergies were last updated in [facility].
Home Medications with original date entered in [facility]
Allergy/Medication List:
Allergies
Allergy/AdvReac Type Severity Reaction Status Date / Time
No Known Allergies Allergy Verified 08/30/25 06:53
Home Medications
dronedarone 400 mg tablet (Multaq) 400 mg PO BID 12/08/21
finasteride 5 mg tablet 5 mg PO DAILY 12/08/21
omega 8-tch-ilq-fish oil 1,000 mg (120 mg-180 mg) capsule (Fish Oil) 1,000 mg PO BID 12/08/21
Held on 11/13/24. Instructions: Resume on 11/28/24.
omeprazole 40 mg capsule,delayed release 40 mg PO DAILY 12/08/21
tamsulosin 0.4 mg capsule (Flomax) 0.4 mg PO BID 12/08/21
arginine 1,000 mg-B12 16.6 mcg-folic acid 66.6 mcg-B6 3.3 mg tablet (L-Arginine [employer]) 1 tab PO BID 11/07/24
Held on 11/13/24. Instructions: Resume on 11/28/24.
carvedilol 25 mg tablet 25 mg PO BID 11/07/24
famotidine 20 mg tablet 20 mg PO DAILY 11/07/24
magnesium 250 mg tablet 250 mg PO DAILY 11/07/24
znxxtutb-jg-uznpv 300 mcg-K 60 mcg-lycop 600 mcg-lutein 300 mcg tablet (Centrum Silver Men) 1 tab PO DAILY 11/07/24
albuterol sulfate 90 mcg/actuation aerosol inhaler 1 inh inhalation R Q4HPRN PRN sob/wheezing 08/30/25
apixaban 5 mg tablet (Eliquis) 5 mg PO BID Blood clot prevention/tx 08/30/25
ferrous sulfate 325 mg (65 mg iron) tablet 325 mg PO MOWEFR 08/30/25
potassium 99 mg tablet 99 mg PO Q48H 08/30/25
Review of Systems
-
A 12 point ROS was completed and negative except as noted: Yes
Physical Exam
Vital Signs
Vital Signs
Temp Pulse Resp BP Pulse Ox
98.2 F 70 25 139/68 93
08/30/25 07:00 08/30/25 10:00 08/30/25 10:00 08/30/25 10:00 08/30/25 10:00
Physical Exam
General: Respiratory Distress
HEENT: NormoCephalic, Atraumatic and Other (On BiPAP)
Respiratory: Crackles (Diffuse)
Cardiac: S1/S2 and Irregular Rhythm
GI: Soft, Non Tender, Non Distended and Normal Bowel Sounds
Musculoskeletal: Edema, Left Lower Extremity and Edema, Right Lower Extremity
Skin: Warm and Dry
Neuro: Awake, Alert, Oriented and AO x 3
Laboratory Results
-
08/30/25 07:21
08/30/25 07:21
Laboratory Results
Lactic Acid Cancelled 08/30/25 12:15
Total Bilirubin 1.0 mg/dl (0.2-1.3) 08/30/25 07:21
AST 24 U/L (17-59) 08/30/25 07:21
ALT 21 U/L (0-50) 08/30/25 07:21
Alkaline Phosphatase 103 U/L (38-126) 08/30/25 07:21
Troponin I < 0.012 ng/ml 08/30/25 07:21
Impression/Plan
-
IMPRESSION:
75-year-old male with presenting with dyspnea from the past 4 days, that has worsened last night.
PLAN:
#Acute hypoxic respiratory failure
Patient afebrile, mildly elevated white count, tachypneic
Chest x-ray with evidence of pneumonia
Crackles and lower extremity edema on exam, no prior history of CHF
proBNP in 800s
Patient recently stopped furosemide (using it for lower extremity edema) outpatient.
Etiology likely pneumonia versus CHF versus COPD exacerbation
Will start ceftriaxone 1 g IV daily, doxycycline 100 p.o. twice daily.
Check sputum cultures
Blood culture pending
Will start Decadron, continue DuoNebs
Pulmonary consult
Wean BiPAP
Recent Lexiscan nuclear studies�no evidence of ischemic heart disease, EF 64%
Latest echo in 2021-with ejection fraction of 55-60%, mild to moderate mitral regurg, biatrial enlargement, borderline concentric LVH
Cardiology consulted, appreciate recs
Echo pending
Will start Lasix 40 mg IV once daily
#Paroxysmal A-fib
S/p cardioversion
Continue anticoagulation with Eliquis
Rate and rhythm control with carvedilol, dronedarone
#Essential hypertension
Continue Coreg
#GERD
Continue omeprazole, famotidine
#BPH
Continue tamsulosin, finasteride
#Diet�low-sodium
#DVT prophylaxis Eliquis
Full code
--- NOTE | 2025-08-30 10:54 | CON.PUL ---
Consultation
Consultation Request
Date/Time Consultation Requested: 08/30/25
Date/Time Consultation Performed: 08/30/25
Performing Provider: Lorenzo
Reason for Consultation: SOB
Medical History
-
History of Present Illness:
75-year-old male with past medical history of paroxysmal A-fib, hypertension, hyperlipidemia, GERD, BPH presented to the ER with shortness of breath that started 4 days ago. It is associated with productive cough producing mucoid sputum, dyspnea
was intermittent in the beginning with exertion, and it has worsened in the past 2 days. Patient denies chest pain, palpitations, headaches, fever/chills, abdominal pain, nausea/vomiting, diarrhea. No sick contacts. Patient has lower extremity
edema, was seen by his general foundry worker on 08/16/2025, his diltiazem discontinued. Patient also reports that he discontinued his home furosemide 5 days ago. ER course�patient was started on BiPAP and nitroglycerin IV, due to crackles and peripheral
edema. Labs with white count 11.8, normal renal function, normal electrolytes. COVID-negative. proBNP at 828. Chest x-ray with evidence of opacities in the right infrahilar region, suspicious for pneumonia.
Past Medical History
Past Medical History: Other (see list below)
Social History
Tobacco: Former Smoker
Alcohol: None
Drug: None
Family History
Family History: Reviewed & Not Pertinent
Allergies / Home Medications
Allergies
Allergy/AdvReac Type Severity Reaction Status Date / Time
No Known Allergies Allergy Verified 08/30/25 06:53
Home Medications
�Medication �Instructions �Recorded �Confirmed �Last Taken �Type
dronedarone 400 mg tablet (Multaq) 400 mg PO BID 12/08/21 08/30/25 08/29/25 History
finasteride 5 mg tablet 5 mg PO DAILY 12/08/21 08/30/25 08/29/25 History
omega 3-fvp-cxy-fish oil 1,000 mg 1,000 mg PO BID 12/08/21 08/30/25 08/29/25 History
(120 mg-180 mg) capsule (Fish Oil)
Held on 11/13/24.
Instructions: Resume on
11/28/24.
omeprazole 40 mg capsule,delayed 40 mg PO DAILY 12/08/21 08/30/25 08/29/25 History
release
tamsulosin 0.4 mg capsule (Flomax) 0.4 mg PO BID 12/08/21 08/30/25 08/29/25 History
arginine 1,000 mg-B12 16.6 1 tab PO BID 11/07/24 08/30/25 08/29/25 History
mcg-folic acid 66.6 mcg-B6 3.3 mg
tablet (L-Arginine [employer])
Held on 11/13/24.
Instructions: Resume on
11/28/24.
carvedilol 25 mg tablet 25 mg PO BID 11/07/24 08/30/25 08/29/25 History
famotidine 20 mg tablet 20 mg PO DAILY 11/07/24 08/30/25 08/29/25 History
magnesium 250 mg tablet 250 mg PO DAILY 11/07/24 08/30/25 08/29/25 History
xjtladzv-fk-txefh 300 mcg-K 60 1 tab PO DAILY 11/07/24 08/30/25 08/29/25 History
mcg-lycop 600 mcg-lutein 300 mcg
tablet (Centrum Silver Men)
albuterol sulfate 90 mcg/actuation 1 inh inhalation R Q4HPRN PRN 08/30/25 08/30/25 Unknown History
aerosol inhaler sob/wheezing
apixaban 5 mg tablet (Eliquis) 5 mg PO BID Blood clot 08/30/25 08/30/25 08/29/25 History
prevention/tx
ferrous sulfate 325 mg (65 mg 325 mg PO MOWEFR 08/30/25 08/30/25 08/29/25 History
iron) tablet
potassium 99 mg tablet 99 mg PO Q48H 08/30/25 08/30/25 Unknown History
Review of Systems
-
History Source: Patient
All other systems: Negative unless noted
Vitals / Labs / Diagnostic Testing
Vital Signs
Temp Pulse Resp BP Pulse Ox
98.2 F 70 25 139/68 93
08/30/25 07:00 08/30/25 10:00 08/30/25 10:00 08/30/25 10:00 08/30/25 10:00
Lab Data
08/30/25 07:21
08/30/25 07:21
Microbiology
08/30/25 07:21 Nasal Swab Influenza Types A & B (RIRI) - Final
Negative for Influenza A & B, NAAT
Negative results must be combined with clinical observations
and patient history.
Nucleic Acid Amplification test (NAAT)performed on the
[employer] platform.
Diagnostic Testing:
Physical Exam
-
HEENT: Normocephalic, Anicteric and Moist Mucous Membranes
Cardiovascular: S1/S2 and Regular Rhythm
Respiratory: Clear (decreased BS BL) and Non-Labored Respirations
GI: Soft, Non Distended and Non Tender
Neurology: Awake, Alert, Oriented and No Motor Deficits
Skin: Warm, Dry and Good Color
General: Comfortable and Other (NAD, on BIPAP)
Assessment
-
75-year-old male with past medical history of paroxysmal A-fib, hypertension, hyperlipidemia, GERD, BPH presented to the ER with shortness of breath that started 4 days ago. It is associated with productive cough producing mucoid sputum, dyspnea
was intermittent in the beginning with exertion, and it has worsened in the past 2 days. Patient denies chest pain, palpitations, headaches, fever/chills, abdominal pain, nausea/vomiting, diarrhea. No sick contacts. Patient has lower extremity
edema, was seen by his general foundry worker on 08/16/2025, his diltiazem discontinued. Patient also reports that he discontinued his home furosemide 5 days ago. ER course�patient was started on BiPAP and nitroglycerin IV, due to crackles and peripheral
edema. Labs with white count 11.8, normal renal function, normal electrolytes. COVID-negative. proBNP at 828. Chest x-ray with evidence of opacities in the right infrahilar region, suspicious for pneumonia. We are consulted for evaluation.
Acute hypoxic resp failure, on BIPAP
Acute SOB x 4 days
LE edema
Chronic CO2 retention, compensated
Suspect AE COPD
Possible PNA on CXR, small RML opacity
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
Cervical radiculopathy
Primary hypertension
Paroxysmal atrial fibrillation/Chronic anticoagulation
Former smoker
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
BPH without urinary obstruction
Primary osteoarthritis of right knee Status post right knee replacement
Gastroesophageal reflux disease
Erectile dysfunction
Primary osteoarthritis, right shoulder
Plan
Hypoxemia noted on arrival, O2 ava 87%--placed on BIPAP due to SOB/WOB
No oxygen was needed prior/at baseline, no known history of use at home
Home O2 evaluation eventually needed
Prior history of lung disease is noted including COPD, he was told this in past
Prior PFT in April showing moderate obstruction, he is not on inhalers as OP, never seen by pulmonary
Former smoker, 20-30 PYs, quit in the 1970s
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
Other features including chronic CO2 retention may be due to IBRAHIMA/hypoventilation disorders
His on BIPAP at this time, but pCO2 well compensated and less likely the causative diagnosis
Agree with IV steroids
I will start inhaler therapy as well
Will need OP repeat PFTs
CXR obtained indicating no acute findings, has small RML finding unlikely to be cause as well
Check PCT/sputum if able
He denies prior history of VTE but there is low threshold to evaluate for this--obtain CT PE study
Will also review RML findings on CT
He has prior history of lung nodules that have self resolved
proBNP not significantly elevated
Prior ECHO results are reviewed indicating normal function
Repeat testing pending
Will need outpatient pulmonary evaluation in our office for PFTs and 6MWT
Reviewed with patient
Risk factors assessed for underlying sleep disordered breathing also noted, recommend outpatient PSG/sleep evaluation
We will follow
Diagnostic Data
Spirometry 08/02/25: FEV1 1.87 L 62%, FVC 2.72 L 67%, ratio 69. Post FEV1 1.84 L 61% no BD response (moderate obstruction)
ECHO 11/21/21- Borderline concentric LVH. Normal right and left ventricular function. Biatrial enlargement. Mild to moderate mitral regurgitation.
CXR 08/30/25: 1. Minimal hazy opacity in the right infrahilar region, which may represent pneumonia or subsegmental atelectasis.
2. No large pleural effusion on either side.
CXR 04/29/23- 1. No radiographic evidence for pneumonia, acute pulmonary edema, or pleural effusion.
2. Minimal scarring in both lungs.
3. 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
CT Chest 01/06/22- 1. No acute abnormalities within the chest. Previously seen 1.1 mm nodule within the right upper lobe has either resolved or represented artifact. 2. Cholelithiasis.
Reports and relevant images were personally reviewed.
Total time spent on this consultation __55__ minutes which includes review of history, physical exam, medications, laboratory data, personal review of imaging, extensive review of outpatient records, discussion with care team and respiratory therapy.
--- NOTE | 2025-08-30 11:21 | EDCM ---
CM reviewed chart and met with pt and his bedside in ED. Pt currently on Bipap.
Lives with his in apartment, full flight of steps to access.
Independent in ADLs, personal care and ambulation at baseline. They have a walker and shower chair but not currently using.
No hx VN or SNF
PCP: Mika Buchanan
Pharmacy: [facility] [address]
CM will continue to follow for all discharge planning needs.
[2025-08-30] MEDS: ELIQUIS 5 MG PO ×2 (11:33→20:24)
[2025-08-30] MEDS: MULTAQ 400 MG PO ×2 (11:33→20:28)
[2025-08-30] MEDS: COREG 25 MG PO ×2 (11:34→20:24)
[2025-08-30 11:56] LABS: Troponin I 0.013 ng/ml
--- NOTE | 2025-08-30 12:15 | PTCARENOTE ---
Pt arrived to floor on stretcher from ED; Pt on BiPAP 21/04 with 15L O2, RT at bedside. Slid over to bed without issue; Denied pain; Skin cleaned with wipes; +2 pitting BLE; NSR on monitor; HR ~ 70-80's; Able to wean O2 down to 12L with SpO2 ~
96%; Pt tachypneic with RR = 30's; Oriented to room, call ragland within reach. Will continue to monitor and assess.
[2025-08-30] MEDS: DECADRON 4 MG IV ×2 (12:35→18:01)
[2025-08-30] MEDS: PEPCID 20 MG PO (12:36)
[2025-08-30] MEDS: PROSCAR 5 MG PO (12:36)
--- NOTE | 2025-08-30 14:09 | CON.CAR ---
Addendum entered and electronically signed by Ben Lopez MD 08/30/25 16:24:
patient seen and examined
limited history-on Bipap with increased work of breathing
has not taken lasix for 5 days. has been on multaq for about 2 years without issue after remote cardioversion
history mainly from family/partner
Agree with GUSTAVO Castillo's note and assessment
Agree with GUSTAVO Castillo's plan
exam:
AAO x 3
non focal neurologically
jvp 6
cor regular no murmur
tele reviewed
lungs with diffuse end exp wheeze w rhales at based
abd soft nt nd
no trace ext edema
Impression:
Admitted with acute hypoxic respiratory failure and likely acute HF 08/30/2025
Acute hypoxic respiratory failure
BiPAP initiated 5Acute HFpEF
Possible AECOPD
Paroxysmal A-fib
Chronic Eliquis OAC
Chronic Multaq therapy
HTN
Echo 06/28/2025: EF 55 to 60%, mild to moderate MR
Echo 08/30/2025: EF 55 to 60%, normal BiV size and function without WMA, mild MR
Plan:
-ECG reviewed by me is SR with ventricular bigeminy. tele with SR and PAC's. reviewed with nursing
-Echo from today reviewed by me and summarized above shows preserved EF without WMA and mild MR, this is overall stable to the echo that he had about 2 months ago.
-Agree with Lasix 40 mg IV daily diuresis. Pending response to diuresis would consider increasing to 40 mg IV BID. Patient had previously been taking Lasix 40 mg PO daily until he inexplicably stopped taking it 4 days ago.
-Outpatient dose of Coreg 25 mg BID should be continued
-Patient was not taking JOSEFA/ARB/ARNI/aldosterone antagonist prior to admission, recommend starting lisinopril 5 mg daily in a.m.
-Patient is not chronically on an SGLT2 inhibitor, this could be started prior to discharge.
-Patient has known paroxysmal A-fib and remains in SR following DIANA/CV in 2021. With new diagnosis of acute HF his outpatient dose of Multaq should probably be stopped at some point, but for now we can continue to help maintain SR and he has
tolerated for years without CHF
-Continue Eliquis 5 mg BID (age 75, Cre 0.7)
-we will follow with you
Original Note:
Consultation
Consultation Request
Date/Time Consultation Requested: 08/30/2025
Date/Time Consultation Performed: 08/30/2025
Requesting Provider: Dr. Couch
Performing Provider: Dr. Lopez
Reason for Consultation: Acute HF
Medical History
-
History of Present Illness:
Patient came to the ER today from home with increased SOB and cardiology is asked to consult for possible acute HF. 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 Patient
was seen by his supervisor litharge, Dr. Tai, in the office 08/16/2025 as a follow-up to his symptoms of JEAN that he had been having on and off through the summer. They reviewed his testing which included a 14-day monitor from 05/2025 that showed no
evidence of atrial arrhythmia and asymptomatic PACs, an echo that he had had 06/28/2025 that showed preserved EF at 55 to 60% with mild to moderate MR and a stress test he completed on 06/21/2025 that showed no evidence of ischemia and preserved EF at
64%. No obvious cardiogenic cause for his symptoms was identified and he was told to continue his medicines as usual including Lasix 40 mg daily. Patient then saw pulmonology as an outpatient and had PFTs and was started on a rescue inhaler PRN.
Patient then saw his PCP on 08/24/2025 and at that time told them he was no longer taking Lasix and that it had been stopped by his supervisor litharge. Patient's girlfriend tells me that he had increasing symptoms of JEAN, then resting SOB and orthopnea
and came to the ER today with audible rales. Patient now says that he does not remember anyone telling him to stop Lasix and that he last took a dose 4 days ago and he is not sure why he stopped taking it.
PMH:
Chronic HFpEF
Paroxysmal A-fib
Chronic Eliquis OAC
Chronic Multaq therapy
HTN
Past Medical History
Past Medical History: Other
Past Surgical History: Appendectomy and Orthopedic
Social History
Tobacco: Former Smoker
Alcohol: None
Drug: None
Personal: Partner
Living: With Family
Employment: Employed
Family History
Family History: Reviewed & Not Pertinent (Denies family history of CAD)
Allergies / Home Medications
Allergy/AdvReac Type Severity Reaction Status Date / Time
No Known Allergies Allergy Verified 08/30/25 06:53
�Medication �Instructions �Recorded �Confirmed �Type
dronedarone 400 mg tablet (Multaq) 400 mg PO BID Arrhythmia 12/08/21 08/30/25 History
finasteride 5 mg tablet 5 mg PO DAILY Urinary Issue 12/08/21 08/30/25 History
omega 7-eaz-eve-fish oil 1,000 mg 1,000 mg PO BID Supplement 12/08/21 08/30/25 History
(120 mg-180 mg) capsule (Fish Oil)
Held on 11/13/24.
Instructions: Resume on
11/28/24.
omeprazole 40 mg capsule,delayed 40 mg PO DAILY Gastrointestinal 12/08/21 08/30/25 History
release Issue
tamsulosin 0.4 mg capsule (Flomax) 0.4 mg PO BID Urinary Issue 12/08/21 08/30/25 History
arginine 1,000 mg-B12 16.6 1 tab PO BID Supplement 11/07/24 08/30/25 History
mcg-folic acid 66.6 mcg-B6 3.3 mg
tablet (L-Arginine [employer]'s Trendslide)
Held on 11/13/24.
Instructions: Resume on
11/28/24.
carvedilol 25 mg tablet 25 mg PO BID Blood Pressure 11/07/24 08/30/25 History
famotidine 20 mg tablet 20 mg PO DAILY Gastrointestinal 11/07/24 08/30/25 History
Issue
magnesium 250 mg tablet 250 mg PO DAILY Supplement 11/07/24 08/30/25 History
mxddhfym-tr-svlxe 300 mcg-K 60 1 tab PO DAILY Supplement 11/07/24 08/30/25 History
mcg-lycop 600 mcg-lutein 300 mcg
tablet (Centrum Silver Men)
albuterol sulfate 90 mcg/actuation 1 inh inhalation R Q4HPRN PRN 08/30/25 08/30/25 History
aerosol inhaler sob/wheezing
apixaban 5 mg tablet (Eliquis) 5 mg PO BID Blood clot 08/30/25 08/30/25 History
prevention/tx
ferrous sulfate 325 mg (65 mg 325 mg PO MOWEFR Supplement 08/30/25 08/30/25 History
iron) tablet
potassium 99 mg tablet 99 mg PO Q48H Supplement 08/30/25 08/30/25 History
Review of Systems
-
History Source: Patient and Family (Girlfriend by phone and daughter in the room)
All other systems: Negative unless noted
Physical Exam
Vital Signs
Temp Pulse Resp BP Pulse Ox
98.2 F 91 32 145/85 99
08/30/25 07:00 08/30/25 13:41 08/30/25 13:41 08/30/25 13:41 08/30/25 13:41
GEN: NAD, AAO x 3
HEENT: EOMI, MMM
LUNGS: BiPAP in place. No audible wheeze
CV: SR on telemetry. Reg, S1/S2, no murmur
ABD: ND
EXT: +1 B/L LE edema
NEURO: Gross non-focal
SKIN: No rash
Lab Results
08/30/25 07:21
08/30/25 07:21
Troponin I 0.013 ng/ml 08/30/25 11:07
Vfr-D-Elyahcxkdkv Pept 828 pg/ml 08/30/25 07:21
Impression / Plan
-
PCP: Dr. Buchanan
Cardiology: Dr. Tai
Impression:
Admitted with acute hypoxic respiratory failure and likely acute HF 08/30/2025
Acute hypoxic respiratory failure
BiPAP initiated 08/30/2025
Acute HFpEF
Possible AECOPD
Paroxysmal A-fib
Chronic Eliquis OAC
Chronic Multaq therapy
HTN
Echo 06/28/2025: EF 55 to 60%, mild to moderate MR
Echo 08/30/2025: EF 55 to 60%, normal BiV size and function without WMA, mild MR
Plan:
-Patient came to the ER today from home with increased SOB and cardiology is asked to consult for possible acute HF. 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 Patient
was seen by his supervisor litharge, Dr. Tai, in the office 08/16/2025 as a follow-up to his symptoms of JEAN that he had been having on and off through the summer. They reviewed his testing which included a 14-day monitor from 05/2025 that showed no
evidence of atrial arrhythmia and asymptomatic PACs, an echo that he had had 06/28/2025 that showed preserved EF at 55 to 60% with mild to moderate MR and a stress test he completed on 06/21/2025 that showed no evidence of ischemia and preserved EF at
64%. No obvious cardiogenic cause for his symptoms was identified and he was told to continue his medicines as usual including Lasix 40 mg daily. Patient then saw pulmonology as an outpatient and had PFTs and was started on a rescue inhaler PRN.
Patient then saw his PCP on 08/24/2025 and at that time told them he was no longer taking Lasix and that it had been stopped by his supervisor litharge. Patient's girlfriend tells me that he had increasing symptoms of JEAN, then resting SOB and orthopnea
and came to the ER today with audible rales. Patient now says that he does not remember anyone telling him to stop Lasix and that he last took a dose 4 days ago and he is not sure why he stopped taking it.
-ECG reviewed by me is SR
-Telemetry reviewed by me also looks like SR
-Echo from today reviewed by me and summarized above shows preserved EF without WMA and mild MR, this is overall stable to the echo that he had about 2 months ago.
-Agree with Lasix 40 mg IV daily diuresis. Pending response to diuresis would consider increasing to 40 mg IV BID. Patient had previously been taking Lasix 40 mg PO daily until he inexplicably stopped taking it 4 days ago.
-Outpatient dose of Coreg 25 mg BID should be continued
-Patient was not taking JOSEFA/ARB/ARNI/aldosterone antagonist prior to admission, recommend starting lisinopril 5 mg daily in a.m., orders placed by me
-Patient is not chronically on an SGLT2 inhibitor, this could be started prior to discharge.
-Patient has known paroxysmal A-fib and remains in SR following DIANA/CV in 2021. With new diagnosis of acute HF his outpatient dose of Multaq should probably be stopped at some point, but for now we can continue to help maintain SR.
-Continue Eliquis 5 mg BID (age 75, Cre 0.7)
-I updated patient's significant other and daughter in the room on 08/30/2025. We talked on the phone for 18 minutes and then talked in the room once the phone call was finished as well. We reviewed recent outpatient ECW visits.
[2025-08-30] MEDS: VENTOLIN NEBULES 2.5 MG INH (15:28)
--- NOTE | 2025-08-30 15:45 | RESPNOTE ---
attempted to liberate from bipap prior to CT. SPO2 96% on 6L midflow, RR 24. patient tolerated midflow for about 5 minutes then patient was laid flat to transfer to stretcher for CT scan and become tachypneic, RR to 40s, c/o not being able to
breathe well. re-applied bipap 16/8 with 8L, RR better, sPO2 97%. patient transported to CT on bipap with RN Koby without incident. upon return to room 3345, patient given prn albuterol neb for wheezing/SOB. pt's nose red, w/o breakdown, exuderm
applied, mask changed to larger size. pt continues to tolerate bipap, RR 30, SpO2 95%. HR 90.
[2025-08-30 17:49] LABS: Troponin I < 0.012 ng/ml
[2025-08-30] MEDS: SYMBICORT 160/4.5 MCG INHALER INH (19:19)
[2025-08-30 19:24] LABS: Hepatitis C Antibody Negative (Negative)
[2025-08-30] MEDS: FLOMAX 0.4 MG PO (20:24)
[2025-08-30] MEDS: VIBRAMYCIN 100 MG PO (20:25)
[2025-08-30] MEDS: COMPAZINE 10 MG IV (21:15)
[2025-08-31] VITALS (15 sets, daily range): BP systolic 113–153; BP diastolic 56–72; PULSE 2–63; BMI 24.1
[2025-08-31] MEDS: DECADRON 4 MG IV ×3 (00:54→16:11)
[2025-08-31 05:16] LABS: Hematocrit 40.5 % (39.0-52.0); Hemoglobin 13.3 g/dL (13.0-18.0); Mean Corp Hgb Conc. 32.8 g/dL (33.0-37.0); Mean Corpuscular Volume 93.5 fL (80.0-94.0); Platelet Count 289 10^3/uL (130-400); Red Cell Dist. Width 13.7 % (11.5-14.5)
--- NOTE | 2025-08-31 06:41 | PTCARENOTE ---
Caring for pt overnight. aaox3, at bedside. Continues to be on bipap. pt had an episode of emesis overnight. VIDEOTAPE RECORDING ENGINEER aware, compazine ordered. This was after pt had taken his pills, pt felt it was from taking pills on an empty stomach. Pt did not
tolerate being off bipap. BP stable. NSR PAC >QT. Remains tachypneic but WOC has decreased, pt seems more comfortable & was able to sleep. Will monitor.
[2025-08-31] MEDS: SPIRIVA RESPIMAT 2.5 MCG 2 PUFF INH (07:45)
[2025-08-31] MEDS: SYMBICORT 160/4.5 MCG INHALER 2 PUFF INH ×2 (07:45→19:47)
[2025-08-31] MEDS: PROTONIX 40 MG PO (09:06)
[2025-08-31] MEDS: MULTAQ 400 MG PO ×2 (09:06→20:01)
[2025-08-31] MEDS: COREG 25 MG PO ×2 (09:07→20:01)
[2025-08-31] MEDS: PROSCAR 5 MG PO (09:07)
[2025-08-31] MEDS: VIBRAMYCIN 100 MG PO ×2 (09:07→20:01)
[2025-08-31] MEDS: PEPCID 20 MG PO (09:07)
[2025-08-31] MEDS: ELIQUIS 5 MG PO ×2 (09:07→20:01)
[2025-08-31] MEDS: ROCEPHIN 1000 MG IV (09:08)
[2025-08-31] MEDS: STERILE WATER FOR INJECTION 10 ML IV (09:08)
[2025-08-31] MEDS: LASIX 40 MG IV (09:08)
[2025-08-31] MEDS: FLOMAX 0.4 MG PO ×2 (09:09→20:02)
--- NOTE | 2025-08-31 09:10 | W.PN.CARDCBS ---
Addendum entered and electronically signed by Sridhar Loera MD 08/31/25 09:20:
Discussed with the EP. Patient has very limited options for A-fib. He has done well on Multaq without CHF for 3 years. Will continue Multaq for now
Original Note:
Today's Communication / Plan
-
Continue IV Lasix for CHF
Continue IV steroids for COPD
Stop Multaq given CHF
Impression / Plan
-
PCP: Dr. Buchanan
Cardiology: Dr. Tai
Impression:
Admitted with acute hypoxic respiratory failure and likely acute HF 08/30/2025
Acute hypoxic respiratory failure
BiPAP initiated 08/30/2025
Acute HFpEF
Possible AECOPD
Paroxysmal A-fib
Chronic Eliquis OAC
Chronic Multaq therapy
HTN
Echo 06/28/2025: EF 55 to 60%, mild to moderate MR
Echo 08/30/2025: EF 55 to 60%, normal BiV size and function without WMA, mild MR
Plan:
He continues with significant hypoxemia requiring large amounts of oxygen
Hard to tell how much of this is COPD versus CHF
Will continue IV Lasix
Weight is down 7 pounds but is a bed scale
Will try to get standing weights on standing scale
Continue treating COPD with IV steroids
Patient is not chronically on an SGLT2 inhibitor, this could be started prior to discharge.
Patient has known paroxysmal A-fib and remains in SR following DIANA/CV in 2021. With new diagnosis of acute HF his outpatient dose of Multaq will be discontinued
Continue Eliquis 5 mg BID (age 75, Cre 0.7)
Discussed with family at bedside
PREADMIT DATA
-Patient came to the ER today from home with increased SOB and cardiology is asked to consult for possible acute HF. 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 Patient
was seen by his [employer] welter, Dr. Tai, in the office 08/16/2025 as a follow-up to his symptoms of JEAN that he had been having on and off through the summer. They reviewed his testing which included a 14-day monitor from 05/2025 that showed no
evidence of atrial arrhythmia and asymptomatic PACs, an echo that he had had 06/28/2025 that showed preserved EF at 55 to 60% with mild to moderate MR and a stress test he completed on 06/21/2025 that showed no evidence of ischemia and preserved EF at
64%. No obvious cardiogenic cause for his symptoms was identified and he was told to continue his medicines as usual including Lasix 40 mg daily. Patient then saw pulmonology as an outpatient and had PFTs and was started on a rescue inhaler PRN.
Patient then saw his PCP on 08/24/2025 and at that time told them he was no longer taking Lasix and that it had been stopped by his [employer] welter. Patient's girlfriend tells me that he had increasing symptoms of JEAN, then resting SOB and orthopnea
and came to the ER today with audible rales. Patient now says that he does not remember anyone telling him to stop Lasix and that he last took a dose 4 days ago and he is not sure why he stopped taking it.
Progress Note - Appeals Officer
Subjective
Date of Service: August 31, 2025
No complaints. No complaints
Objective
Labs:
08/31/25 05:02
08/30/25 07:21
Labs
Hgb 13.3 g/dL (13.0-18.0) 08/31/25 05:02
Hct 40.5 % (39.0-52.0) 08/31/25 05:02
Plt Count 289 10^3/uL (130-400) 08/31/25 05:02
Sodium 138 mmol/L (135-145) 08/30/25 07:21
Potassium 4.1 mmol/L (3.5-5.1) 08/30/25 07:21
BUN 13 mg/dl (9-20) 08/30/25 07:21
Creatinine 0.7 mg/dL (0.7-1.3) 08/30/25 07:21
Glucose 120 mg/dl (70-99) H 08/30/25 07:21
Troponins
08/30/25 08/30/25 08/30/25
07:21 11:07 17:04
Troponin I < 0.012 0.013 < 0.012
Vital Signs and I&O:
Vital Signs
Temp Pulse Resp BP Pulse Ox
98.1 F 84 20 121/60 98
08/31/25 03:10 08/31/25 07:55 08/31/25 07:55 08/31/25 04:00 08/31/25 07:55
Vital Signs
Temp Pulse Resp BP Pulse Ox
98.1 F 84 20 121/60 98
08/31/25 03:10 08/31/25 07:55 08/31/25 07:55 08/31/25 04:00 08/31/25 07:55
Intake & Output
08/29/25 08/30/25 08/31/25 09/01/25
06:59 06:59 06:59 06:59
Intake Total 150 / 150
Output Total 1700 / 1700
Balance -1550 / -1550
Physical Exam
Physical Exam
General: Well developed, well nourished in NAD.
Neck: Supple, no JVD, HJR, carotids +2 B/L, no bruits bilaterally.
Heart: Non displaced PMI, RRR, no murmurs, No S3, S4, no rubs.
Lungs: Wheezes noted throughout
Abdomen: Normal bowel sounds, soft, non-tender, non-distended.
Extremities: No clubbing, cyanosis or edema bilaterally.
Neuro: Grossly nonfocal, awake, alert and oriented x3.
--- NOTE | 2025-08-31 09:20 | W.PN.PUL3 ---
Today's Communication / Plan
-
Doing well, now off BIPAP- remains on 4L but can likely wean down as tolerated
Wean IV steroid dosing, if doing well can transition to PO in next 24 hours
PCT pending, if negative-would stop abx
BIPAP continued PRN and nightly
OOB/PT, IS encouraged
Assessment
-
75-year-old male with past medical history of paroxysmal A-fib, hypertension, hyperlipidemia, GERD, BPH presented to the ER with shortness of breath that started 4 days ago. It is associated with productive cough producing mucoid sputum, dyspnea
was intermittent in the beginning with exertion, and it has worsened in the past 2 days. Patient denies chest pain, palpitations, headaches, fever/chills, abdominal pain, nausea/vomiting, diarrhea. No sick contacts. Patient has lower extremity
edema, was seen by his wireline field operator on 08/16/2025, his diltiazem discontinued. Patient also reports that he discontinued his home furosemide 5 days ago. ER course�patient was started on BiPAP and nitroglycerin IV, due to crackles and peripheral
edema. Labs with white count 11.8, normal renal function, normal electrolytes. COVID-negative. proBNP at 828. Chest x-ray with evidence of opacities in the right infrahilar region, suspicious for pneumonia. We are consulted for evaluation.
Acute hypoxic resp failure, on BIPAP
Acute SOB x 4 days
LE edema
Chronic CO2 retention, compensated
Suspect AE COPD
Possible PNA on CXR, not confirmed on CT--r/o PNA
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
Cervical radiculopathy
Primary hypertension
Paroxysmal atrial fibrillation/Chronic anticoagulation
Former smoker
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
BPH without urinary obstruction
Primary osteoarthritis of right knee Status post right knee replacement
Gastroesophageal reflux disease
Erectile dysfunction
Primary osteoarthritis, right shoulder
Plan
Hypoxemia noted on arrival, O2 ava 87%--placed on BIPAP due to SOB/WOB
Currently 96% on 4L
No oxygen was needed prior/at baseline, no known history of use at home
Home O2 evaluation eventually needed
Prior history of lung disease is noted including COPD, he was told this in past
Prior PFT in April showing moderate obstruction, he is not on inhalers as OP, never seen by pulmonary
Former smoker, 20-30 PYs, quit in the 1970s
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
Other features including chronic CO2 retention may be due to IBRAHIMA/hypoventilation disorders
His on BIPAP at this time, but pCO2 well compensated and less likely the causative diagnosis
Agree with IV steroids --wean dosing
I will start inhaler therapy as well--continue on
Will need OP repeat PFTs
CXR obtained indicating no acute findings, has small RML finding unlikely to be cause as well
Check PCT/sputum if able
He denies prior history of VTE but there is low threshold to evaluate for this--obtained CT PE study--negative for PE/consolidation
He has prior history of lung nodules that have self resolved
If PCT negative, would stop abx
proBNP not significantly elevated
Prior ECHO results are reviewed indicating normal function
Repeat ECHO-stable
Will need outpatient pulmonary evaluation in our office for PFTs and 6MWT
Reviewed with patient
Risk factors assessed for underlying sleep disordered breathing also noted, recommend outpatient PSG/sleep evaluation
We will follow
Diagnostic Data
Spirometry 08/02/25: FEV1 1.87 L 62%, FVC 2.72 L 67%, ratio 69. Post FEV1 1.84 L 61% no BD response (moderate obstruction)
ECHO 08/30/25- 1. Normal biventricular size and function without regional wall motion abnormalities.
2. LVEF is 55-60% by visual assessment. Normal diastolic function.
3. Mild mitral regurgitation.
4. Insufficient TR for estimation of PASP.
5. Compared to prior from November 21, 2021, MR is improved now mild, previously mild to moderate.
ECHO 11/21/21- Borderline concentric LVH. Normal right and left ventricular function. Biatrial enlargement. Mild to moderate mitral regurgitation.
CXR 08/30/25: 1. Minimal hazy opacity in the right infrahilar region, which may represent pneumonia or subsegmental atelectasis.
2. No large pleural effusion on either side.
CXR 04/29/23- 1. No radiographic evidence for pneumonia, acute pulmonary edema, or pleural effusion.
2. Minimal scarring in both lungs.
3. 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
CT PE study 08/30/25- 1. No evidence of pulmonary embolism. No significant abnormality identified in the chest, as described above.
CT Chest 01/06/22- . No acute abnormalities within the chest. Previously seen 1.1 mm nodule within the right upper lobe has either resolved or represented artifact. 2. Cholelithiasis.
Reports and relevant images were personally reviewed.
Total time spent on this consultation __51__ minutes which includes review of history, physical exam, medications, laboratory data, personal review of imaging, extensive review of outpatient records, discussion with care team and respiratory therapy.
Subjective Data
-
Date of Service:
Date of Service: August 31, 2025
Chief Complaint: Pulmonary Follow Up
Subjective:
Better this AM, now off BIPAP and appears comfortable
He notes his SOB is improved as well
Objective Data
Data Reviewed
Vital Signs / I&O / Oxygen:
Vital Signs
Temp Pulse Resp BP Pulse Ox
98.1 F 84 20 121/60 98
08/31/25 03:10 08/31/25 07:55 08/31/25 07:55 08/31/25 04:00 08/31/25 07:55
Intake and Output
08/30/25 08/31/25 09/01/25
06:59 06:59 06:59
Intake Total 150 / 150
Output Total 1700 / 1700
Balance -1550 / -1550
SaO2 98
Nasal Cannula flow liters per 6
minute
Physical Exam
General: Comfortable and Other (NAD)
HEENT: Normocephalic, Anicteric and Moist Mucous Membranes
Cardiovascular: S1-S2, Regular Rhythm and Peripheral Edema (1+)
Respiratory: Clear and Non-Labored Respirations
GI: Soft, Non Distended and Non Tender
Neurology: Awake, Alert, Oriented and No Motor Deficits
Skin: Warm, Dry and Good Color
Labs/Micro/Reports
Lab Data
08/31/25 05:02
08/30/25 07:21
Microbiology
08/30/25 08:23 Blood/Venous Blood Culture - Preliminary
No Growth in 24 hours- Final report to follow
08/30/25 07:00 Blood/Venous Blood Culture - Preliminary
No Growth in 24 hours- Final report to follow
08/30/25 07:21 Nasal Swab Influenza Types A & B (RIRI) - Final
Negative for Influenza A & B, NAAT
Negative results must be combined with clinical observations
and patient history.
Nucleic Acid Amplification test (NAAT)performed on the
[employer] platform.
[2025-08-31 11:25] LABS: Blood Urea Nitrogen 26 mg/dl (9-20); Calcium 9.2 mg/dl (8.4-10.2); Carbon Dioxide 28 mmol/L (22-30); Chloride 100 mmol/L (98-107); Estimated Creatinine Clearance 94 ml/min; Glucose 195 mg/dl (70-99); Potassium 3.7 mmol/L (3.5-5.1); Sodium 134 mmol/L (135-145); eGFR > 60.00
--- NOTE | 2025-08-31 13:04 | W.PN.UPDATE ---
Update Note
Progress Note Update
Seen and examined the patient. Agree with the plan formulated by the resident. See changes in my documentation
75-year-old male with shortness of breath for the past 3 days got worse overnight.
Patient denied any fever or chest pain he had some mucoid sputum but had some frothy sputum in the ER per discussion with ER attending at bedside. He had no sick contacts. Reportedly his Lasix was discontinued. I texted his PCP who stated that
cardiology has discontinued. On reviewing outpatient cardiology notes it stays from 08/16/2025 to continue Lasix 40 mg p.o. daily. Unclear when and who has stopped this. Patient had stress test in June. He also was seen by Dr. Lopez and had
pulmonary function testing done recently.
Chest x-ray reviewed by me-opacity in the right hilar area
Echo November 2021-LVH, biatrial enlargement, mild to moderate MR
EKG-sinus rhythm nonspecific ST-T changes
CT chest-no evidence of PE.
Awake alert oriented
Few short wheezes-few crackles on lung exam
Cardiovascular system S1-S2 appreciated
Abdomen soft and nontender
Mild pedal edema
# Acute hypoxic respiratory failure
Likely secondary to COPD exacerbation and acute on chronic HFpEF
Covid neg, Flu neg
ABG noted
Off BiPAP-weaning nasal cannula oxygen
Has acute bronchitis-continue doxycycline
No thromboembolic ds on CT
proBNP 828
Trop neg
Per cardiology notes patient had TTE in June 22, 2025 which ruled out overt cardiomyopathy, ventricular dysfunction and heart disease and significant valvular heart disease. I do not have an echo report.
He also had a pharmacologic nuclear cardiac stress test-ruled out inducible myocardial ischemia/obstructive coronary disease-June 2025.
Continue daily Lasix, I would also continue with Doxy ( Stop Rocephin) steroids, nebulizer treatments
Pulmonary and cardiology consultations
Outpatient records from PCP office as well as Dr. Tai reviewed
# Paroxysmal atrial fibrillation with history of cardioversion in the past in 2021-on Coreg ,Multaq and Eliquis as outpatient
Had a chlorinator operator in May 2025 demonstrated-no A-fib/a flutter and 9.1% burden of PACs
Because of his lower extremity edema Cardizem was discontinued and changed to Coreg.
# Hypertension-on Coreg as outpatient. Continue
# Enlarged prostate-continue finasteride, Flomax
# History of nephrolithiasis
# GERD-continue PPI
# Ao-[id number] in
# Former alcohol use-sober since 2008
# DVT prophylaxis-Eliquis
# CODE STATUS- FULL code
Discussed with at bedside
Part of this note was created using voice recognition system. Occasional wrong word or��sound alike� substitutions may have inadvertently occurred due to the inherent limitations of voice recognition software. If noted kindly bring it to my
attention for correction.
--- NOTE | 2025-08-31 13:13 | W.PN.HOSP.TC ---
Today's Communication/Plan
-
.
Assessment / Plan
Assessment / Plan
75M PMHx paroxysmal atrial fibrillation on Eliquis and Dronedarone, HTN, HLD, GERD, and BPH, as well as documented abnormal PFTs with an obstructive pattern, previous ECHO with a normal EF, systolic function and diastolic function, and an
approximately 20 pack year smoking history who presented to the Emergency Dept with progressive SOB and productive cough in the setting of non-compliance with Lasix with possible pneumonia on CXR initially requiring BiPAP and now weaned to NC s/p
initiation of IV Lasix and abx.
1. Acute Hypoxic Respiratory Failure
- Likely multifactorial to COPD exacerbation/acute on chronic HFpEF
- Improving O2 requirements, off of BiPAP, now saturating 97% on 5L
- No evidence of pneumonia on CT; d/c Ceftriaxone; continue doxy in the setting of acute bronchitis
- Continue PRN Albuterol nebs/INH
- Continue Decadron IV
- Continue Furosemide 40 mg IV; resume home dose at discharge
- Continue Coreg
- Eventual Home O2 assessment
- Outpatient eval with pulm, appreciate reccs
2. Paroxysmal Atrial Fibrillation
- Continue Coreg and Eliquis
- Per cardiology, patient has limited options for Afib and has been maintained on Multaq for years; continue; appreciate reccs
3. Hypertension
- Continue Coreg
4. BPH
- Continue Finesteride and FLomax
5. GERD
- Continue Famotidine, protonix
Full Code
Eliquis
2g Na
Anticipated Discharge: 24 - 48 hours
Subjective/Interval History
-
Date of Service: August 31, 2025
Patient seen and examined. Since this is my first time seeing the patient I performed a thorough past medical history.
Briefly, the patient is a 75M w/ PMHx of paroxysmal atrial fibrillation on Eliquis and Dronedarone, HTN, HLD, GERD, and BPH, as well as documented abnormal PFTs with an obstructive pattern, previous ECHO with a normal EF, systolic function and
diastolic function, and an approximately 20 pack year smoking history. He endorses 4 days of progressively worsening shortness of breath that had been associated with cough productive of mucoid sputum. In addition to this, the patient notes that he
had been having worsened lower extremity edema. Patient, despite no evidence of CHF, takes Lasix for intermittent lower extremity swelling. This swelling is usually limited to the ankle and lower calf area, and is mostly dependent with prolonged
standing, and goes away with lying down. Patient notes that he had been compliant with Lasix use, up until about 5 days ago when he noticed he had run out of medication, and then believed that he could just go without it for a little bit.
Patient is currently off of BiPAP and states that he is feeling much better today. He denies any shortness of breath or LE edema. Endorses cough, minimally productive of sputum.
Objective Data
-
Labs:
Laboratory Results
08/31/25 08/31/25
05:02 10:53
WBC 9.1
Hgb 13.3
Hct 40.5
Plt Count 289
Sodium 134 L
Potassium 3.7
Chloride 100
Carbon Dioxide 28
BUN 26 H
Creatinine 0.7
Glucose 195 H
Calcium 9.2
Vital Signs:
Vital Signs
Temp Pulse Resp BP Pulse Ox
98.1 F 87 22 118/56 96
08/31/25 03:10 08/31/25 10:00 08/31/25 10:00 08/31/25 10:00 08/31/25 11:51
I&O
08/30/25 08/31/25 09/01/25
06:59 06:59 06:59
Intake Total 150 / 150 480 / 480
Output Total 1700 / 1700 800 / 800
Balance -1550 / -1550 -320 / -320
Review of Systems
-
History Source: Patient
All other systems: Reviewed and negative
Physical Exam
-
General: Well Developed, Well Nourished, No Apparent Distress and Comfortable
HEENT: Normocephalic, Atraumatic and Moist Mucous Membranes
Respiratory: Non Labored Respirations, Decreased Breath Sounds (near the bases, minimal crackles towards bases bilaterally. ) and Other (minimal occasional wheeze)
Cardiac: Regular Rhythm; Negative Murmur
Musculoskeletal: No Clubbing, No Cyanosis and Other (trace edema near ankles)
Skin: Warm
Neuro: Awake and Alert
Psych: Calm
Data Reviewed
-
Diagnostic Radiology: Image personally visualized and interpreted, Report Reviewed by me and Discussed with Patient
CT Scan: Image personally visualized and interpreted, Report Reviewed by me and Discussed with Patient
[2025-08-31 13:51] LABS: Procalcitonin < 0.05 ng/ml (0.0-0.25)
[2025-08-31] MEDS: FEOSOL 325 MG PO (16:11)
--- NOTE | 2025-08-31 16:41 | CM ---
F/U: Patient has acute respiratory failure and heart issues thus continuing to be monitored by Medical Team. PT/OT has made no recommendations yet. PLAN: Home vs. SNF
[2025-08-31 17:11] LABS: Glucose - Point of Care 149 mg/dl (70-99)
[2025-08-31] MEDS: NOVOLOG FLEXPEN-LOW RESISTANCE SC (17:46)
[2025-08-31 21:20] LABS: Glucose - Point of Care 170 mg/dl (70-99)
[2025-09-01] VITALS (12 sets, daily range): BP systolic 113–146; BP diastolic 57–77; PULSE 2–59; BMI 24.4; BMI 23.8
[2025-09-01] MEDS: DECADRON 4 MG IV ×3 (01:01→17:25)
[2025-09-01] MEDS: SPIRIVA RESPIMAT 2.5 MCG 2 PUFF INH (07:26)
[2025-09-01] MEDS: SYMBICORT 160/4.5 MCG INHALER 2 PUFF INH ×2 (07:26→19:55)
[2025-09-01 07:27] LABS: Hematocrit 36.1 % (39.0-52.0); Hemoglobin 12.5 g/dL (13.0-18.0); Mean Corp Hgb Conc. 34.6 g/dL (33.0-37.0); Mean Corpuscular Volume 91.2 fL (80.0-94.0); Platelet Count 270 10^3/uL (130-400); Red Cell Dist. Width 14.0 % (11.5-14.5)
[2025-09-01 08:09] LABS: Blood Urea Nitrogen 30 mg/dl (9-20); Calcium 8.7 mg/dl (8.4-10.2); Carbon Dioxide 30 mmol/L (22-30); Chloride 101 mmol/L (98-107); Estimated Creatinine Clearance 94 ml/min; Glucose 142 mg/dl (70-99); Potassium 3.9 mmol/L (3.5-5.1); Sodium 132 mmol/L (135-145); eGFR > 60.00
[2025-09-01] MEDS: PROTONIX 40 MG PO (08:15)
[2025-09-01] MEDS: VIBRAMYCIN 100 MG PO ×2 (08:15→20:40)
[2025-09-01] MEDS: NOVOLOG FLEXPEN-LOW RESISTANCE SC (08:15)
[2025-09-01] MEDS: COREG 25 MG PO ×2 (08:15→20:40)
[2025-09-01] MEDS: PROSCAR 5 MG PO (08:15)
[2025-09-01] MEDS: FLOMAX 0.4 MG PO ×2 (08:15→20:40)
[2025-09-01] MEDS: ELIQUIS 5 MG PO ×2 (08:16→20:40)
[2025-09-01] MEDS: PEPCID 20 MG PO (08:16)
[2025-09-01] MEDS: MULTAQ 400 MG PO ×2 (08:16→20:40)
[2025-09-01] MEDS: LASIX 40 MG IV (08:17)
[2025-09-01 08:24] LABS: Glucose - Point of Care 131 mg/dl (70-99)
--- NOTE | 2025-09-01 08:40 | PTCARENOTE ---
Pt AAOx3 on 3 L O2. Lungs coarse with a harsh moist cough. Wore Bipap all night . at bedside
--- NOTE | 2025-09-01 08:43 | W.PN.CARDCBS ---
Today's Communication / Plan
-
Continue IV Lasix and antibiotics
Impression / Plan
-
PCP: Dr. Buchanan
Cardiology: Dr. Tai
Impression:
Admitted with acute hypoxic respiratory failure and likely acute HF 08/30/2025
Acute hypoxic respiratory failure
BiPAP initiated 08/30/2025
Acute HFpEF
Possible AECOPD
Paroxysmal A-fib
Chronic Eliquis OAC
Chronic Multaq therapy
HTN
Echo 06/28/2025: EF 55 to 60%, mild to moderate MR
Echo 08/30/2025: EF 55 to 60%, normal BiV size and function without WMA, mild MR
Plan:
He continues with hypoxemia which is improving with diuresis and IV steroids
Unclear how much weight he has lost as continue to use bed scales
Will ask nursing to use standing scale weights
Patient has known paroxysmal A-fib and remains in SR following DIANA/CV in 2021. Continue Multaq for now although technically would discontinue his CHF. He has limited options for A-fib
Continue Eliquis 5 mg BID (age 75, Cre 0.7)
Discussed with at bedside
PREADMIT DATA
-Patient came to the ER today from home with increased SOB and cardiology is asked to consult for possible acute HF. 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 Patient
was seen by his aircraft assembler, Dr. Tai, in the office 08/16/2025 as a follow-up to his symptoms of JEAN that he had been having on and off through the summer. They reviewed his testing which included a 14-day monitor from 05/2025 that showed no
evidence of atrial arrhythmia and asymptomatic PACs, an echo that he had had 06/28/2025 that showed preserved EF at 55 to 60% with mild to moderate MR and a stress test he completed on 06/21/2025 that showed no evidence of ischemia and preserved EF at
64%. No obvious cardiogenic cause for his symptoms was identified and he was told to continue his medicines as usual including Lasix 40 mg daily. Patient then saw pulmonology as an outpatient and had PFTs and was started on a rescue inhaler PRN.
Patient then saw his PCP on 08/24/2025 and at that time told them he was no longer taking Lasix and that it had been stopped by his aircraft assembler. Patient's girlfriend tells me that he had increasing symptoms of JEAN, then resting SOB and orthopnea
and came to the ER today with audible rales. Patient now says that he does not remember anyone telling him to stop Lasix and that he last took a dose 4 days ago and he is not sure why he stopped taking it.
Progress Note - Bus Girl
Subjective
Date of Service: September 01, 2025
No complaints
Objective
Labs:
09/01/25 05:51
09/01/25 05:51
Labs
Hgb 12.5 g/dL (13.0-18.0) L 09/01/25 05:51
Hct 36.1 % (39.0-52.0) L 09/01/25 05:51
Plt Count 270 10^3/uL (130-400) 09/01/25 05:51
Sodium 132 mmol/L (135-145) L 09/01/25 05:51
Potassium 3.9 mmol/L (3.5-5.1) 09/01/25 05:51
BUN 30 mg/dl (9-20) H 09/01/25 05:51
Creatinine 0.7 mg/dL (0.7-1.3) 09/01/25 05:51
Glucose 142 mg/dl (70-99) H 09/01/25 05:51
Troponins
08/30/25 08/30/25 08/30/25
07:21 11:07 17:04
Troponin I < 0.012 0.013 < 0.012
Vital Signs and I&O:
Vital Signs
Temp Pulse Resp BP Pulse Ox
98.3 F 66 18 146/86 98
09/01/25 02:52 09/01/25 08:17 09/01/25 07:31 09/01/25 08:17 09/01/25 07:31
Vital Signs
Temp Pulse Resp BP Pulse Ox
98.3 F 66 18 146/86 98
09/01/25 02:52 09/01/25 08:17 09/01/25 07:31 09/01/25 08:17 09/01/25 07:31
Intake & Output
08/30/25 08/31/25 09/01/25 09/02/25
06:59 06:59 06:59 06:59
Intake Total 150 / 150 480 / 480
Output Total 1700 / 1700 1100 / 1100
Balance -1550 / -1550 -620 / -620
Physical Exam
Physical Exam
General: Well developed, well nourished in NAD.
Neck: Supple, no JVD, HJR, carotids +2 B/L, no bruits bilaterally.
Heart: Non displaced PMI, RRR, no murmurs, No S3, S4, no rubs.
Lungs: Scattered wheezes
Abdomen: Normal bowel sounds, soft, non-tender, non-distended.
Extremities: No clubbing, cyanosis or edema bilaterally.
Neuro: Grossly nonfocal, awake, alert and oriented x3.
--- NOTE | 2025-09-01 10:50 | W.PN.HOSP.TC ---
Today's Communication/Plan
-
Continue IV steroids-weaned
Continue doxycycline
Continue to wean oxygen
Continue Lasix
Nursing should only do standing scale weights on this patient
Ok to transfer to tele
Assessment / Plan
Assessment / Plan
75-year-old male with shortness of breath for the past 3 days got worse overnight.
Patient denied any fever or chest pain he had some mucoid sputum but had some frothy sputum in the ER per discussion with ER attending at bedside. He had no sick contacts. Patient had stress test in June. He also was seen by Dr. Lopez and
had pulmonary function testing done recently. Patient ran out of Lasix and forgot to refill it therefore stopped taking it 5 days prior to admission
Chest x-ray reviewed by me-opacity in the right hilar area
Echo November 2021-LVH, biatrial enlargement, mild to moderate MR
EKG-sinus rhythm nonspecific ST-T changes
CT chest-no evidence of PE.
Awake alert oriented
Few crackles on lung exam, short wheezes still present
Cardiovascular system S1-S2 appreciated
Abdomen soft and nontender
Mild pedal edema
# Acute hypoxic respiratory failure
Likely secondary to COPD exacerbation and acute on chronic HFpEF
Covid neg, Flu neg
ABG noted
Off BiPAP-weaning nasal cannula oxygen
Has acute bronchitis-continue doxycycline
No thromboembolic ds on CT
proBNP 828
Trop neg
Per cardiology notes patient had TTE in June 22, 2025 which ruled out overt cardiomyopathy, ventricular dysfunction and heart disease and significant valvular heart disease. I do not have an echo report.
He also had a pharmacologic nuclear cardiac stress test-ruled out inducible myocardial ischemia/obstructive coronary disease-June 2025.
Continue daily Lasix, I would also continue with Doxy for acute bronchitis ( Stopped Rocephin), steroids, nebulizer treatments
Pulmonary and cardiology consultations appreciated
Oxygen weaned down to 2 L today
IV steroids weaned to every 8 hours
# Paroxysmal atrial fibrillation with history of cardioversion in the past in 2021-on Coreg ,Multaq and Eliquis as outpatient
Had a cardiac nurse practitioner in May 2025 demonstrated-no A-fib/a flutter and 9.1% burden of PACs
Because of his lower extremity edema Cardizem was discontinued and changed to Coreg.
# Hypertension-on Coreg as outpatient. Continue
# Enlarged prostate-continue finasteride, Flomax
# History of nephrolithiasis
# GERD-continue PPI
# Qv-[id number]-cyyt in
# Former alcohol use-sober since 2008
# DVT prophylaxis-Eliquis
# CODE STATUS- FULL code
Discussed with at bedside
Part of this note was created using voice recognition system. Occasional wrong word or��sound alike� substitutions may have inadvertently occurred due to the inherent limitations of voice recognition software. If noted kindly bring it to my
attention for correction.
Anticipated Discharge: 24 - 48 hours
Subjective/Interval History
-
Date of Service: September 01, 2025
Objective Data
-
Labs:
Laboratory Results
09/01/25
05:51
WBC 14.2 H
Hgb 12.5 L
Hct 36.1 L
Plt Count 270
Sodium 132 L
Potassium 3.9
Chloride 101
Carbon Dioxide 30
BUN 30 H
Creatinine 0.7
Glucose 142 H
Calcium 8.7
Vital Signs:
Vital Signs
Temp Pulse Resp BP Pulse Ox
97.6 F 67 26 124/67 97
09/01/25 07:00 09/01/25 10:00 09/01/25 10:00 09/01/25 10:00 09/01/25 10:00
I&O
08/31/25 09/01/25 09/02/25
06:59 06:59 06:59
Intake Total 150 / 150 480 / 480
Output Total 1700 / 1700 1100 / 1100 1425 / 1425
Balance -1550 / -1550 -620 / -620 -1425 / -1425
--- NOTE | 2025-09-01 11:35 | W.PN.PUL3 ---
Today's Communication / Plan
-
Doing well, now off BIPAP- remains on 4L but can likely wean down as tolerated
Wean IV steroid dosing, if doing well can transition to PO in next [address] negative - short course of doxy
BIPAP continued PRN and nightly
OOB/PT, IS encouraged
Assessment
-
75-year-old male with past medical history of paroxysmal A-fib, hypertension, hyperlipidemia, GERD, BPH presented to the ER with shortness of breath that started 4 days ago. It is associated with productive cough producing mucoid sputum, dyspnea
was intermittent in the beginning with exertion, and it has worsened in the past 2 days. Patient denies chest pain, palpitations, headaches, fever/chills, abdominal pain, nausea/vomiting, diarrhea. No sick contacts. Patient has lower extremity
edema, was seen by his rn midwife on 08/16/2025, his diltiazem discontinued. Patient also reports that he discontinued his home furosemide 5 days ago. ER course�patient was started on BiPAP and nitroglycerin IV, due to crackles and peripheral
edema. Labs with white count 11.8, normal renal function, normal electrolytes. COVID-negative. proBNP at 828. Chest x-ray with evidence of opacities in the right infrahilar region, suspicious for pneumonia. We are consulted for evaluation.
Acute hypoxic resp failure, on BIPAP
Acute SOB x 4 days
LE edema
Chronic CO2 retention, compensated
Suspect AE COPD
Possible PNA on CXR, not confirmed on CT--r/o PNA
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
Cervical radiculopathy
Primary hypertension
Paroxysmal atrial fibrillation/Chronic anticoagulation
Former smoker
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
BPH without urinary obstruction
Primary osteoarthritis of right knee Status post right knee replacement
Gastroesophageal reflux disease
Erectile dysfunction
Primary osteoarthritis, right shoulder
Plan
Hypoxemia noted on arrival, O2 ava 87%--placed on BIPAP due to SOB/WOB
Currently 97% on 4L
No oxygen was needed prior/at baseline, no known history of use at home
Home O2 evaluation eventually needed PTD
Prior history of lung disease is noted including COPD, he was told this in past
Prior PFT in April showing moderate obstruction, he is not on inhalers as OP, never seen by pulmonary
Former smoker, 20-30 PYs, quit in the 1970s
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
Other features including chronic CO2 retention may be due to IBRAHIMA/hypoventilation disorders
Continue BiPAP with sleep (was not 16/8 bled with 6 L/min last night)
Agree with IV steroids (Decadron 4 mg IV q8hr)--wean dosing as he clinically improves
Continue Symbicort + Spiriva
Will need OP repeat PFTs
CXR obtained indicating no acute findings, has small RML finding unlikely to be cause as well
Procal is negative at <0.05
He denies prior history of VTE but there is low threshold to evaluate for this--obtained CT PE study on 08/30/2025--negative for PE/consolidation, with bronchial wall thickening predominantly in the lower lobes with no signs of CHF
He has prior history of lung nodules that have self resolved
Given that procalcitonin is negative, agree with stopping ceftriaxone. Could consider short course of doxycycline to cover URI
proBNP not significantly elevated
Prior ECHO results are reviewed indicating normal function
Repeat ECHO-stable
Will need outpatient pulmonary evaluation in our office for PFTs and 6MWT
Reviewed with patient
Risk factors assessed for underlying sleep disordered breathing also noted, recommend outpatient PSG/sleep evaluation
We will follow
Diagnostic Data
Spirometry 08/02/25: FEV1 1.87 L 62%, FVC 2.72 L 67%, ratio 69. Post FEV1 1.84 L 61% no BD response (moderate obstruction)
ECHO 08/30/25- 1. Normal biventricular size and function without regional wall motion abnormalities.
2. LVEF is 55-60% by visual assessment. Normal diastolic function.
3. Mild mitral regurgitation.
4. Insufficient TR for estimation of PASP.
5. Compared to prior from November 21, 2021, MR is improved now mild, previously mild to moderate.
ECHO 11/21/21- Borderline concentric LVH. Normal right and left ventricular function. Biatrial enlargement. Mild to moderate mitral regurgitation.
CXR 08/30/25: 1. Minimal hazy opacity in the right infrahilar region, which may represent pneumonia or subsegmental atelectasis.
2. No large pleural effusion on either side.
CXR 04/29/23- 1. No radiographic evidence for pneumonia, acute pulmonary edema, or pleural effusion.
2. Minimal scarring in both lungs.
3. 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
CT PE study 08/30/25- 1. No evidence of pulmonary embolism. No significant abnormality identified in the chest, as described above.
CT Chest 01/06/22- 1. No acute abnormalities within the chest. Previously seen 1.1 mm nodule within the right upper lobe has either resolved or represented artifact. 2. Cholelithiasis.
Reports and relevant images were personally reviewed.
Total time spent on this consultation __37__ minutes which includes review of history, physical exam, medications, laboratory data, personal review of imaging, extensive review of outpatient records, discussion with care team and respiratory therapy.
Subjective Data
-
Date of Service:
Date of Service: September 01, 2025
Chief Complaint: Pulmonary Follow Up
Subjective:
Patient seen today at bedside. On 4 L/min nasal cannula saturating 97%. No acute events reported overnight
Review of Systems
General: Other (Negative unless mentioned above)
Objective Data
Data Reviewed
Vital Signs / I&O / Oxygen:
Vital Signs
Temp Pulse Resp BP Pulse Ox
97.6 F 67 26 124/67 97
09/01/25 07:00 09/01/25 10:00 09/01/25 10:00 09/01/25 10:00 09/01/25 10:00
Intake and Output
08/31/25 09/01/25 09/02/25
06:59 06:59 06:59
Intake Total 150 / 150 480 / 480
Output Total 1700 / 1700 1100 / 1100 1425 / 1425
Balance -1550 / -1550 -620 / -620 -1425 / -1425
SaO2 97
Nasal Cannula flow liters per 3
minute
Physical Exam
General: Comfortable and Other (NAD)
HEENT: Normocephalic, Anicteric and Moist Mucous Membranes
Cardiovascular: S1-S2, Regular Rhythm and Peripheral Edema (1+)
Respiratory: Clear and Non-Labored Respirations
GI: Soft, Non Distended and Non Tender
Neurology: Awake, Alert, Oriented and No Motor Deficits
Skin: Warm, Dry and Good Color
Labs/Micro/Reports
Lab Data
09/01/25 05:51
09/01/25 05:51
Microbiology
08/30/25 08:23 Blood/Venous Blood Culture - Preliminary
No Growth in 48 hours- Final report to follow
08/30/25 07:00 Blood/Venous Blood Culture - Preliminary
No Growth in 48 hours- Final report to follow
08/30/25 07:21 Nasal Swab Influenza Types A & B (RIRI) - Final
Negative for Influenza A & B, NAAT
Negative results must be combined with clinical observations
and patient history.
Nucleic Acid Amplification test (NAAT)performed on the
[employer] platform.
[2025-09-01 12:31] LABS: Glucose - Point of Care 212 mg/dl (70-99)
[2025-09-01] MEDS: NOVOLOG FLEXPEN-LOW RESISTANCE 2 UNITS SC (12:58)
[2025-09-01 17:20] LABS: Glucose - Point of Care 179 mg/dl (70-99)
[2025-09-01] MEDS: NOVOLOG FLEXPEN-LOW RESISTANCE 1 UNITS SC (17:22)
[2025-09-01 20:44] LABS: Glucose - Point of Care 183 mg/dl (70-99)
[2025-09-02] VITALS (9 sets, daily range): BP systolic 121–163; BP diastolic 62–74; PULSE 2–57; BMI 23.9
[2025-09-02] MEDS: DECADRON 4 MG IV ×3 (00:34→20:17)
[2025-09-02] MEDS: SYMBICORT 160/4.5 MCG INHALER 2 PUFF INH ×2 (07:33→19:24)
[2025-09-02] MEDS: SPIRIVA RESPIMAT 2.5 MCG 2 PUFF INH (07:34)
[2025-09-02 08:05] LABS: Glucose - Point of Care 138 mg/dl (70-99)
[2025-09-02] MEDS: NOVOLOG FLEXPEN-LOW RESISTANCE SC ×2 (08:52→12:11)
[2025-09-02] MEDS: FLOMAX 0.4 MG PO ×2 (08:57→20:16)
[2025-09-02] MEDS: PEPCID 20 MG PO (08:57)
[2025-09-02] MEDS: PROTONIX 40 MG PO (08:57)
[2025-09-02] MEDS: VIBRAMYCIN 100 MG PO ×2 (08:57→20:16)
[2025-09-02] MEDS: PROSCAR 5 MG PO (08:57)
[2025-09-02] MEDS: ELIQUIS 5 MG PO ×2 (08:57→20:16)
[2025-09-02] MEDS: MULTAQ 400 MG PO ×2 (08:57→20:15)
[2025-09-02] MEDS: COREG 25 MG PO ×2 (08:58→20:16)
[2025-09-02] MEDS: LASIX 40 MG IV (08:59)
[2025-09-02 10:13] LABS: Hematocrit 40.5 % (39.0-52.0); Hemoglobin 13.5 g/dL (13.0-18.0); Mean Corp Hgb Conc. 33.3 g/dL (33.0-37.0); Mean Corpuscular Volume 90.8 fL (80.0-94.0); Platelet Count 290 10^3/uL (130-400); Red Cell Dist. Width 14.1 % (11.5-14.5)
[2025-09-02 10:38] LABS: Blood Urea Nitrogen 26 mg/dl (9-20); Calcium 9.2 mg/dl (8.4-10.2); Carbon Dioxide 29 mmol/L (22-30); Chloride 101 mmol/L (98-107); Estimated Creatinine Clearance 94 ml/min; Glucose 189 mg/dl (70-99); Potassium 3.9 mmol/L (3.5-5.1); Sodium 135 mmol/L (135-145); eGFR > 60.00
--- NOTE | 2025-09-02 11:18 | W.PN.CARDCBS ---
Today's Communication / Plan
-
Stable cardiology status
Changed to oral Lasix and sign off
Impression / Plan
-
PCP: Dr. Buchanan
Cardiology: Dr. Tai
Impression:
Admitted with acute hypoxic respiratory failure and likely acute HF 08/30/2025
Acute hypoxic respiratory failure
BiPAP initiated 08/30/2025
Acute HFpEF
Possible AECOPD
Paroxysmal A-fib
Chronic Eliquis OAC
Chronic Multaq therapy
HTN
Echo 06/28/2025: EF 55 to 60%, mild to moderate MR
Echo 08/30/2025: EF 55 to 60%, normal BiV size and function without WMA, mild MR
Plan:
His weight seems to have plateaued.
He is currently on room air and wheezing is improved
Will change to oral Lasix and sign off
He will follow-up with cardiology at [facility]
Patient has known paroxysmal A-fib and remains in SR following DIANA/CV in 2021. Continue Multaq for now although technically would discontinue with CHF. He has limited options for A-fib
Continue Eliquis 5 mg BID (age 75, Cre 0.7)
PREADMIT DATA
-Patient came to the ER today from home with increased SOB and cardiology is asked to consult for possible acute HF. 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 Patient
was seen by his dye machine tender, Dr. Tia, in the office 08/16/2025 as a follow-up to his symptoms of JEAN that he had been having on and off through the summer. They reviewed his testing which included a 14-day monitor from 05/2025 that showed no
evidence of atrial arrhythmia and asymptomatic PACs, an echo that he had had 06/28/2025 that showed preserved EF at 55 to 60% with mild to moderate MR and a stress test he completed on 06/21/2025 that showed no evidence of ischemia and preserved EF at
64%. No obvious cardiogenic cause for his symptoms was identified and he was told to continue his medicines as usual including Lasix 40 mg daily. Patient then saw pulmonology as an outpatient and had PFTs and was started on a rescue inhaler PRN.
Patient then saw his PCP on 08/24/2025 and at that time told them he was no longer taking Lasix and that it had been stopped by his dye machine tender. Patient's girlfriend tells me that he had increasing symptoms of JEAN, then resting SOB and orthopnea
and came to the ER today with audible rales. Patient now says that he does not remember anyone telling him to stop Lasix and that he last took a dose 4 days ago and he is not sure why he stopped taking it.
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
Subjective
Date of Service: September 02, 2025
No chest pain or shortness of breath. On room air
Objective
Labs:
09/02/25 09:22
09/02/25 09:22
Labs
Hgb 13.5 g/dL (13.0-18.0) 09/02/25 09:22
Hct 40.5 % (39.0-52.0) 09/02/25 09:22
Plt Count 290 10^3/uL (130-400) 09/02/25 09:22
Sodium 135 mmol/L (135-145) 09/02/25 09:22
Potassium 3.9 mmol/L (3.5-5.1) 09/02/25 09:22
BUN 26 mg/dl (9-20) H 09/02/25 09:22
Creatinine 0.7 mg/dL (0.7-1.3) 09/02/25 09:22
Glucose 189 mg/dl (70-99) H 09/02/25 09:22
Troponins
08/30/25 08/30/25
11:07 17:04
Troponin I 0.013 < 0.012
Vital Signs and I&O:
Vital Signs
Temp Pulse Resp BP Pulse Ox
97.7 F 61 16 143/68 97
09/02/25 07:30 09/02/25 07:38 09/02/25 07:38 09/02/25 07:30 09/02/25 07:38
Vital Signs
Temp Pulse Resp BP Pulse Ox
97.7 F 61 16 143/68 97
09/02/25 07:30 09/02/25 07:38 09/02/25 07:38 09/02/25 07:30 09/02/25 07:38
Intake & Output
08/31/25 09/01/25 09/02/25 09/03/25
06:59 06:59 06:59 06:59
Intake Total 150 / 150 480 / 480 480 / 480
Output Total 1700 / 1700 1100 / 1100 1425 / 1425
Balance -1550 / -1550 -620 / -620 -945 / -945
Physical Exam
Physical Exam
General: Well developed, well nourished in NAD.
Neck: Supple, no JVD, HJR, carotids +2 B/L, no bruits bilaterally.
Heart: Non displaced PMI, RRR, no murmurs, No S3, S4, no rubs.
Lungs: Few wheezes throughout
Extremities: No clubbing, cyanosis or edema bilaterally.
Neuro: Grossly nonfocal, awake, alert and oriented x3.
[2025-09-02 11:58] LABS: Glucose - Point of Care 132 mg/dl (70-99)
--- NOTE | 2025-09-02 13:43 | W.PN.HOSP.TC ---
Today's Communication/Plan
-
steroids weaned down to Q12
home oxygen assessment appreciated no needs
cont abx
possible discharge tomorrow on oral prednisone taper if remains stable, continues to improve
Assessment / Plan
Assessment / Plan
Physical Exam
General: No acute distress, conversant coherent
Pulm: diffuse wheezing
Cardiovascular system: S1-S2 NSR no murmurs
Abdomen: soft, nontender, bowel sounds present, nondistended
Ext: no cyanosis, clubbing, or pitting edema
Neuro: AOx3 conversant coherent
Psych: Calm
75M COPD HFpEF pAfib HTN BPH GERD p/w SOB 3 days, worsen overnight YOUTH NUTRITIONAL MONITOR. Denied fever, chest pain, or sick contacts. Patient had stress test in June. He also was seen by Dr. Lopez and had pulmonary function testing done recently. Patient ran
out of Lasix and forgot to refill it therefore stopped taking it 5 days prior to admission.
Chest x-ray appreciated possible PNA vs subsegmental atelectasis
Echo November 2021-LVH, biatrial enlargement, mild to moderate MR
EKG-sinus rhythm nonspecific ST-T changes
CT chest-no evidence of PE.
# Acute hypoxic respiratory failure
Likely secondary to COPD exacerbation and acute on chronic HFpEF
Covid neg, Flu neg
ABG noted
weaned off oxygen supplementation, stable respiratory status on room air
09/02/25 home oxygen assessment appreciated no needs.
Has acute bronchitis-continue doxycycline planned 5 day course 08/30/25 to 09/03/25
No thromboembolic ds on CT
proBNP 828
Trop neg
Per cardiology notes patient had TTE in June 22, 2025 which ruled out overt cardiomyopathy, ventricular dysfunction and heart disease and significant valvular heart disease
He also had a pharmacologic nuclear cardiac stress test-ruled out inducible myocardial ischemia/obstructive coronary disease-June 2025.
Continue daily Lasix, steroids, inhalers as per pulm
Pulmonary and cardiology consultations appreciated
IV steroids weaned to every 12 hours
# Paroxysmal atrial fibrillation with history of cardioversion in the past in 2021-on Coreg, Multaq, and Eliquis as outpatient
Had a director cardiac in May 2025 demonstrated-no A-fib/a flutter and 9.1% burden of PACs
Because of his lower extremity edema Cardizem was discontinued and changed to Coreg.
# Hypertension-on Coreg as outpatient. Continue
# Enlarged prostate-continue finasteride, Flomax
# History of nephrolithiasis
# GERD-continue PPI
# Wr-[id number] in
# Former alcohol use-sober since 2008
# DVT prophylaxis-Eliquis
# CODE STATUS- FULL code
discussed with patient and patient's Karley
I spent a total of 40 minutes with the patient or on the floor. More than 50% of this time involved counseling and coordination of care.
Anticipated Discharge: Within 24 hours
Subjective/Interval History
-
Date of Service: September 02, 2025
No acute distress, sitting up comfortably in bed, reports feeling well. Tolerating ambulation without need for assist device.
Objective Data
-
Labs:
Laboratory Results
09/02/25
09:22
WBC 12.6 H
Hgb 13.5
Hct 40.5
Plt Count 290
Sodium 135
Potassium 3.9
Chloride 101
Carbon Dioxide 29
BUN 26 H
Creatinine 0.7
Glucose 189 H
Calcium 9.2
Vital Signs:
Vital Signs
Temp Pulse Resp BP Pulse Ox
97.8 F 63 16 121/66 94
09/02/25 11:30 09/02/25 11:30 09/02/25 11:30 09/02/25 11:30 09/02/25 11:30
I&O
09/01/25 09/02/25 09/03/25
06:59 06:59 06:59
Intake Total 480 / 480 480 / 480
Output Total 1100 / 1100 1425 / 1425
Balance -620 / -620 -945 / -945
--- NOTE | 2025-09-02 15:32 | W.PN.PUL3 ---
Today's Communication / Plan
-
Doing well, now off BIPAP- now on room air and breathing comfortably
Wean IV steroid dosing, if doing well can transition to PO in next 24-48hrs hours
PCT negative - finite course of doxy
BIPAP continued PRN and nightly, although he says he is not interested in using BiPAP at home
Would check ambulatory pulse oximetry prior to discharge
OOB/PT, IS encouraged
Pulmonary service will continue to follow along
Assessment
-
75-year-old male with past medical history of paroxysmal A-fib, hypertension, hyperlipidemia, GERD, BPH presented to the ER with shortness of breath that started 4 days ago. It is associated with productive cough producing mucoid sputum, dyspnea
was intermittent in the beginning with exertion, and it has worsened in the past 2 days. Patient denies chest pain, palpitations, headaches, fever/chills, abdominal pain, nausea/vomiting, diarrhea. No sick contacts. Patient has lower extremity
edema, was seen by his high voltage electrician on 08/16/2025, his diltiazem discontinued. Patient also reports that he discontinued his home furosemide 5 days ago. ER course�patient was started on BiPAP and nitroglycerin IV, due to crackles and peripheral
edema. Labs with white count 11.8, normal renal function, normal electrolytes. COVID-negative. proBNP at 828. Chest x-ray with evidence of opacities in the right infrahilar region, suspicious for pneumonia. We are consulted for evaluation.
Acute hypoxic resp failure, on BIPAP - -> now on room air
Acute SOB x 4 days
LE edema
Chronic CO2 retention, compensated
Suspect AE COPD
Possible PNA on CXR, not confirmed on CT--r/o PNA
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
Cervical radiculopathy
Primary hypertension
Paroxysmal atrial fibrillation/Chronic anticoagulation
Former smoker
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
BPH without urinary obstruction
Primary osteoarthritis of right knee Status post right knee replacement
Gastroesophageal reflux disease
Erectile dysfunction
Primary osteoarthritis, right shoulder
Plan
Hypoxemia noted on arrival, O2 ava 87%--placed on BIPAP due to SOB/WOB
Currently 95% on room air which is improved from when he was first admitted, when he required continuous BiPAP with supplemental oxygen as high as 8-10 L/min
No oxygen was needed prior/at baseline, no known history of use at home
Home O2 evaluation needed prior to discharge
Prior history of lung disease is noted including COPD, he was told this in past
Prior PFT in April showing moderate obstruction, he is not on inhalers as OP, never seen by pulmonary
Former smoker, 20-30 PYs, quit in the 1970s
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
Other features including chronic CO2 retention may be due to IBRAHIMA/hypoventilation disorders
Continue BiPAP with sleep (used 10/13 last night)
Agree with IV steroids (Decadron 4 mg IV q8hr) --> change to 4mg IV q12hr tonight)-- continue to wean dosing as he clinically improves
Continue Symbicort + Spiriva
Will need OP repeat PFTs
CXR obtained indicating no acute findings, has small RML opacity unlikely to be cause of his symptoms
Procal is negative at <0.05
He denies prior history of VTE but there is low threshold to evaluate for this--obtained CT PE study on 08/30/2025--negative for PE/consolidation, with bronchial wall thickening predominantly in the lower lobes with no signs of CHF
He has prior history of lung nodules that have self resolved
Given that procalcitonin is negative, agree with stopping ceftriaxone. Finite course of doxycycline to cover URI
proBNP not significantly elevated
Prior ECHO results are reviewed indicating normal function
Repeat ECHO-stable
Will need outpatient pulmonary evaluation in our office for PFTs and 6MWT
Reviewed with patient
Risk factors assessed for underlying sleep disordered breathing also noted, recommend outpatient PSG/sleep evaluation
We will follow
Diagnostic Data
Spirometry 08/02/25: FEV1 1.87 L 62%, FVC 2.72 L 67%, ratio 69. Post FEV1 1.84 L 61% no BD response (moderate obstruction)
ECHO 08/30/25- 1. Normal biventricular size and function without regional wall motion abnormalities.
2. LVEF is 55-60% by visual assessment. Normal diastolic function.
3. Mild mitral regurgitation.
4. Insufficient TR for estimation of PASP.
5. Compared to prior from November 21, 2021, MR is improved now mild, previously mild to moderate.
ECHO 11/21/21- Borderline concentric LVH. Normal right and left ventricular function. Biatrial enlargement. Mild to moderate mitral regurgitation.
CXR 08/30/25: 1. Minimal hazy opacity in the right infrahilar region, which may represent pneumonia or subsegmental atelectasis.
2. No large pleural effusion on either side.
CXR 04/29/23- . No radiographic evidence for pneumonia, acute pulmonary edema, or pleural effusion.
2. Minimal scarring in both lungs.
3. 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
CT PE study 08/30/25- . No evidence of pulmonary embolism. No significant abnormality identified in the chest, as described above.
CT Chest 01/06/22- . No acute abnormalities within the chest. Previously seen 1.1 mm nodule within the right upper lobe has either resolved or represented artifact. 2. Cholelithiasis.
Reports and relevant images were personally reviewed.
Total time spent on this consultation __42__ minutes which includes review of history, physical exam, medications, laboratory data, personal review of imaging, extensive review of outpatient records, discussion with care team and respiratory therapy.
Subjective Data
-
Date of Service:
Date of Service: September 02, 2025
Chief Complaint: Pulmonary Follow Up and Dyspnea Follow Up
Subjective:
Patient seen and evaluated today at bedside (late note entry). Afebrile overnight. Currently on room air breathing comfortably. He says he feels well. Walked around the [place] today with no significant shortness of breath. Still bringing up
phlegm but it is improved. Usually he may bring up some phlegm throughout the year but it is typically seasonal.
Review of Systems
General: Other (Negative unless mentioned above)
Objective Data
Data Reviewed
Vital Signs / I&O / Oxygen:
Vital Signs
Temp Pulse Resp BP Pulse Ox
97.9 F 61 16 131/62 97
09/02/25 03:00 09/02/25 07:38 09/02/25 07:38 09/02/25 03:00 09/02/25 07:38
Intake and Output
09/01/25 09/02/25 09/03/25
06:59 06:59 06:59
Intake Total 480 / 480 480 / 480
Output Total 1100 / 1100 1425 / 1425
Balance -620 / -620 -945 / -945
SaO2 97
Nasal Cannula flow liters per 3
minute
Physical Exam
General: Comfortable and Other (NAD)
HEENT: Normocephalic, Anicteric and Moist Mucous Membranes
Cardiovascular: S1-S2, Regular Rhythm and Peripheral Edema (negative)
Respiratory: Clear, Non-Labored Respirations and Other (Coughing with deep breaths)
GI: Soft, Non Distended and Non Tender
Neurology: Awake, Alert, Oriented and Tremors (negative)
Skin: Warm, Dry, Cyanosis (negative) and Jaundice (negative)
Labs/Micro/Reports
Microbiology
08/30/25 08:23 Blood/Venous Blood Culture - Preliminary
No Growth in 48 hours- Final report to follow
08/30/25 07:00 Blood/Venous Blood Culture - Preliminary
No Growth in 48 hours- Final report to follow
08/30/25 07:21 Nasal Swab Influenza Types A & B (RIRI) - Final
Negative for Influenza A & B, NAAT
Negative results must be combined with clinical observations
and patient history.
Nucleic Acid Amplification test (NAAT)performed on the
[employer] platform.
[2025-09-02 17:00] LABS: Glucose - Point of Care 278 mg/dl (70-99)
[2025-09-02] MEDS: NOVOLOG FLEXPEN-LOW RESISTANCE 3 UNITS SC (17:17)
[2025-09-02 22:11] LABS: Glucose - Point of Care 147 mg/dl (70-99)
[2025-09-03 01:59] LABS: Blood Urea Nitrogen 29 mg/dl (9-20); Calcium 8.8 mg/dl (8.4-10.2); Carbon Dioxide 28 mmol/L (22-30); Chloride 102 mmol/L (98-107); Estimated Creatinine Clearance 94 ml/min; Glucose 132 mg/dl (70-99); Magnesium 2.0 mg/dl (1.6-2.3); Potassium 4.1 mmol/L (3.5-5.1); Sodium 135 mmol/L (135-145); eGFR > 60.00
[2025-09-03 03:00] VITALS: BP 139/74
[2025-09-03 03:52] VITALS: PULSE 2
[2025-09-03 05:42] LABS: Hematocrit 38.6 % (39.0-52.0); Hemoglobin 13.3 g/dL (13.0-18.0); Mean Corp Hgb Conc. 34.5 g/dL (33.0-37.0); Mean Corpuscular Volume 90.4 fL (80.0-94.0); Platelet Count 282 10^3/uL (130-400); Red Cell Dist. Width 13.7 % (11.5-14.5)
[2025-09-03 06:00] VITALS: BMI 24.4
[2025-09-03 07:55] VITALS: BP 130/78
[2025-09-03] MEDS: SYMBICORT 160/4.5 MCG INHALER 2 PUFF INH (07:58)
[2025-09-03] MEDS: SPIRIVA RESPIMAT 2.5 MCG 2 PUFF INH (07:58)
--- NOTE | 2025-09-03 08:54 | W.PN.HOSP.TC ---
Addendum entered and electronically signed by Ifeoma Wall MD 09/03/25 12:27:
Attending�addendum:
I saw and evaluated the patient. I reviewed the resident�s note and agree with findings and plan as documented in the resident�s note.��Patient seen and examined at bedside, denies any chest pain , shortness of breath Improved, no abdominal pain,
no nausea, no vomiting, no diarrhea or constipation.
Cleared for discharge as per pulmonology.
Physical exam:
GENERAL : Patient is awake, alert, oriented x3
HEENT: Nonicteric sclerae, PERRLA, EOMI. Oropharynx clear. Moist mucous membranes. Conjunctivae appear well perfused.
CHEST: Chest wall is nontender.
HEART: Regular rate and rhythm without murmurs.
LUNGS: Clear to auscultation bilaterally.
ABDOMEN: Soft, positive bowel sounds, nontender, no organomegaly.
RECTAL: Deferred.
MUSCLES/EXTREMITIES: No abnormal range of motion, no swelling.SKIN: No rash, no excessive bruising, petechiae, or purpura.
NEUROLOGIC: Cranial nerves II-XII intact without motor/sensory deficit.
�
Assessment/plan:
Acute hypoxic respiratory failure secondary to CHF/COPD exacerbation
Acute diastolic CHF
Overall shortness of breath improved.
Will be discharged on oral prednisone and Lasix.
Passed ambulatory pulse ox
Follow-up with bonderizer
Paroxysmal A-fib.
Continue carvedilol and Eliquis
CODE STATUS: Full code
DVT prophylaxis: Eliquis
Diet: Cardiac diet
Disposition: Discharge home today
�
Total time spent on today�s encounter was 51 minutes which included time spent in counseling the patient/family regarding diagnosis and treatment plan as listed above, goals of care, and symptom management. Case was discussed with nursing staff,
specialists, and care coordinators/case management. All labs and imaging personally reviewed by me. Remainder the time spent in detailed review of previous records, lab data, imaging, and other medical provider documentation.
Original Note:
Today's Communication/Plan
-
Stable for discharge.
Assessment / Plan
Assessment / Plan
75M PMHx paroxysmal atrial fibrillation on Eliquis and Dronedarone, HTN, HLD, GERD, and BPH, as well as documented abnormal PFTs with an obstructive pattern, previous ECHO with a normal EF, systolic function and diastolic function, and an
approximately 20 pack year smoking history who presented to the Emergency Dept with progressive SOB and productive cough in the setting of non-compliance with Lasix with possible pneumonia on CXR initially requiring BiPAP.
1. Acute Hypoxic Respiratory Failure
- Likely multifactorial to COPD exacerbation/acute on chronic HFpEF/acute bronchitis
- Improving O2 requirements. Initially weaned off BiPAP. Now using mask PRN/QHS. Otherwise off of NC during the day.
- No evidence of pneumonia on CT; d/c Ceftriaxone; per pulm okay to d/c doxy as well.
- Decadron IV; weaned to 4mg q12h yesterday. Transition to prednisone 30mg x 5 days.
- Continue Furosemide 40 mg PO (home dose)
- Continue Coreg 25 mg PO (home dose)
- Home O2 assessment done. No needs.
- Outpatient eval with puljuan diego, appreciate reccs
2. Paroxysmal Atrial Fibrillation
- Continue Coreg and Eliquis
- Per cardiology, patient has limited options for Afib and has been maintained on Multaq for years; continue; appreciate reccs
- Will follow up with Cardiology at [facility]
3. Hypertension
- Continue Coreg
4. BPH
- Continue Finesteride and FLomax
5. GERD
- Continue Famotidine, protonix
6. History of Nephrolithiasis
7. Former Smoker
# DVT prophylaxis-Eliquis
# CODE STATUS- FULL code
# 2g Na Diet
Stable for discharge today.
Anticipated Discharge: Today
Subjective/Interval History
-
Date of Service: September 03, 2025
Patient seen and examined while resting comfortably in bed and eating his breakfast. Patient with no acute complaints this AM, says he is feeling well. Notes a marked improvement from presentation. States that he was up and walking around the unit a
couple of times yesterday without getting SOB. Also notes that he has been up and out of bed when he can, and has not had issues with SOB. States that there is improvement in productivity of cough but still has lingering cough. No lower extremity
swelling. Otherwise no acute complaints.
Objective Data
-
Labs:
Laboratory Results
09/03/25 09/03/25 09/03/25
01: 05:20 06:00
WBC 11.2 H
Hgb 13.3
Hct 38.6 L
Plt Count 282
Sodium 135 Cancelled
Potassium 4.1 Cancelled
Chloride 102 Cancelled
Carbon Dioxide 28 Cancelled
BUN 29 H Cancelled
Creatinine 0.7 Cancelled
Glucose 132 H Cancelled
Calcium 8.8 Cancelled
Vital Signs:
Vital Signs
Temp Pulse Resp BP Pulse Ox
97.7 F 84 16 130/78 96
09/03/25 07:55 09/03/25 08:01 09/03/25 08:01 09/03/25 07:55 09/03/25 08:01
I&O
09/02/25 09/03/25 09/04/25
06:59 06:59 06:59
Intake Total 480 / 480 1040 / 1040
Output Total 1425 / 1425 300 / 300
Balance -945 / -945 740 / 740
Review of Systems
-
History Source: Patient
All other systems: Reviewed and negative
Physical Exam
-
General: Well Developed, Well Nourished, No Apparent Distress, Comfortable and Other (No O2 supplementation. )
HEENT: Normocephalic and Atraumatic
Respiratory: Wheezes (mild, expiratory. ), Rhonchi (occasional, disappears with cough) and Non Labored Respirations; Negative Rales or Accessory Resp Muscle Use
Cardiac: Regular Rhythm and S1/S2
GI: Soft
Musculoskeletal: No Clubbing, No Cyanosis and No Edema
Skin: Warm
Neuro: Awake, Alert and Oriented
Psych: Calm
Data Reviewed
-
Labs: Labs Reviewed by me and Discussed with Patient
[2025-09-03 09:23] LABS: Glucose - Point of Care 152 mg/dl (70-99)
[2025-09-03] MEDS: NOVOLOG FLEXPEN-LOW RESISTANCE SC (09:32)
[2025-09-03] MEDS: FEOSOL 325 MG PO (09:33)
[2025-09-03] MEDS: MULTAQ 400 MG PO (09:33)
[2025-09-03] MEDS: PEPCID 20 MG PO (09:33)
[2025-09-03] MEDS: COREG 25 MG PO (09:33)
[2025-09-03] MEDS: FLOMAX 0.4 MG PO (09:33)
[2025-09-03] MEDS: LASIX 40 MG PO (09:33)
[2025-09-03] MEDS: PROSCAR 5 MG PO (09:33)
[2025-09-03] MEDS: PROTONIX 40 MG PO (09:33)
[2025-09-03] MEDS: ELIQUIS 5 MG PO (09:33)
[2025-09-03] MEDS: VIBRAMYCIN 100 MG PO (09:33)
[2025-09-03] MEDS: DECADRON 4 MG IV (09:34)
--- NOTE | 2025-09-03 10:14 | W.PN.PUL3 ---
Today's Communication / Plan
-
- Transition to PO Prednisone 30 mg daily for 5 days
- Can d/c antibiotics.
- Can discharge home on Spiriva and Symbicort as currently using.
- Out patient follow up with [facility] pulmonary clinic.
Assessment
-
75-year-old male with past medical history of paroxysmal A-fib, hypertension, hyperlipidemia, GERD, BPH presented to the ER with shortness of breath that started 4 days ago. It is associated with productive cough producing mucoid sputum, dyspnea
was intermittent in the beginning with exertion, and it has worsened in the past 2 days. Patient denies chest pain, palpitations, headaches, fever/chills, abdominal pain, nausea/vomiting, diarrhea. No sick contacts. Patient has lower extremity
edema, was seen by his environmental issues instructor on 08/16/2025, his diltiazem discontinued. Patient also reports that he discontinued his home furosemide 5 days ago. ER course�patient was started on BiPAP and nitroglycerin IV, due to crackles and peripheral
edema. Labs with white count 11.8, normal renal function, normal electrolytes. COVID-negative. proBNP at 828. Chest x-ray with evidence of opacities in the right infrahilar region, suspicious for pneumonia. We are consulted for evaluation.
Acute hypoxic resp failure, on BIPAP - -> now on room air
Acute SOB x 4 days
LE edema
Chronic CO2 retention, compensated
Suspect AE COPD
Possible PNA on CXR, not confirmed on CT--r/o PNA
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
Cervical radiculopathy
Primary hypertension
Paroxysmal atrial fibrillation/Chronic anticoagulation
Former smoker
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
BPH without urinary obstruction
Primary osteoarthritis of right knee Status post right knee replacement
Gastroesophageal reflux disease
Erectile dysfunction
Primary osteoarthritis, right shoulder
Plan
Hypoxemia noted on arrival, O2 ava 87%--placed on BIPAP due to SOB/WOB
Currently saturating well on room air. Able to ambulate without difficulty
No oxygen was needed prior/at baseline, no known history of use at home
Home O2 evaluation needed prior to discharge
Prior history of lung disease is noted including COPD, he was told this in past
Prior PFT in April showing moderate obstruction, he is not on inhalers as OP, never seen by pulmonary
Former smoker, 20-30 PYs, quit in the 1970s
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
Other features including chronic CO2 retention may be due to IBRAHIMA/hypoventilation disorders
Continue Symbicort + Spiriva. Can transition to prednisone 30 mg daily for 5 more days and discontinue
Will need OP repeat PFTs
Will need sleep study as outpatient. Patient will also need a follow-up gas in 4 to 6 weeks to see if he has chronic pCO2 elevation more than 53 which might qualify for nightly positive pressure ventilation. This can be pursued as outpatient.
CXR obtained indicating no acute findings, has small RML opacity unlikely to be cause of his symptoms
Procal is negative at <0.05
He denies prior history of VTE but there is low threshold to evaluate for this--obtained CT PE study on 08/30/2025--negative for PE/consolidation, with bronchial wall thickening predominantly in the lower lobes with no signs of CHF
He has prior history of lung nodules that have self resolved
Given that procalcitonin is negative, agree with stopping ceftriaxone. Finite course of doxycycline to cover URI
proBNP not significantly elevated
Prior ECHO results are reviewed indicating normal function
Repeat ECHO-stable
Will need outpatient pulmonary evaluation in our office for PFTs and 6MWT
Reviewed with patient
Risk factors assessed for underlying sleep disordered breathing also noted, recommend outpatient PSG/sleep evaluation
Patient can be discharged from pulmonary standpoint. Pulmonary team will sign off. Will arrange outpatient follow-up.
Diagnostic Data
Spirometry 08/02/25: FEV1 1.87 L 62%, FVC 2.72 L 67%, ratio 69. Post FEV1 1.84 L 61% no BD response (moderate obstruction)
ECHO 08/30/25- 1. Normal biventricular size and function without regional wall motion abnormalities.
2. LVEF is 55-60% by visual assessment. Normal diastolic function.
3. Mild mitral regurgitation.
4. Insufficient TR for estimation of PASP.
5. Compared to prior from November 21, 2021, MR is improved now mild, previously mild to moderate.
ECHO 11/21/21- Borderline concentric LVH. Normal right and left ventricular function. Biatrial enlargement. Mild to moderate mitral regurgitation.
CXR 08/30/25: 1. Minimal hazy opacity in the right infrahilar region, which may represent pneumonia or subsegmental atelectasis.
2. No large pleural effusion on either side.
CXR 04/29/23- . No radiographic evidence for pneumonia, acute pulmonary edema, or pleural effusion.
2. Minimal scarring in both lungs.
3. 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
CT PE study 08/30/25- 1. No evidence of pulmonary embolism. No significant abnormality identified in the chest, as described above.
CT Chest 01/06/22. No acute abnormalities within the chest. Previously seen 1.1 mm nodule within the right upper lobe has either resolved or represented artifact. 2. Cholelithiasis.
Reports and relevant images were personally reviewed.
Total time spent on this consultation __42__ minutes which includes review of history, physical exam, medications, laboratory data, personal review of imaging, extensive review of outpatient records, discussion with care team and respiratory therapy.
Subjective Data
-
Date of Service:
Date of Service: September 03, 2025
Chief Complaint: Pulmonary Follow Up and Dyspnea Follow Up
Subjective:
Patient comfortably lying in bed in no acute distress.
Review of Systems
Genitourinary: Other (No new symptoms reported, patient clinically improving)
Objective Data
Data Reviewed
Vital Signs / I&O / Oxygen:
Vital Signs
Temp Pulse Resp BP Pulse Ox
97.7 F 84 16 130/78 96
09/03/25 07:55 09/03/25 08:01 09/03/25 08:01 09/03/25 07:55 09/03/25 08:01
Intake and Output
09/02/25 09/03/25 09/04/25
06:59 06:59 06:59
Intake Total 480 / 480 1040 / 1040
Output Total 1425 / 1425 300 / 300
Balance -945 / -945 740 / 740
SaO2 96
Nasal Cannula flow liters per 3
minute
Physical Exam
General: Comfortable and Other (NAD)
HEENT: Normocephalic, Anicteric and Moist Mucous Membranes
Cardiovascular: S1-S2, Regular Rhythm and Peripheral Edema (negative)
Respiratory: Clear, Non-Labored Respirations and Other (No wheezing this morning)
GI: Soft, Non Distended and Non Tender
Neurology: Awake, Alert, Oriented and Tremors (negative)
Skin: Warm, Dry, Cyanosis (negative) and Jaundice (negative)
Labs/Micro/Reports
Lab Data
09/03/25 05:20
09/03/25 06:00
Microbiology
09/02/25 06:27 Sputum Respiratory Culture - Preliminary
Usual Respiratory Holly
09/02/25 06:27 Sputum Gram Stain - Preliminary
08/30/25 08:23 Blood/Venous Blood Culture - Preliminary
No Growth in 4 days- Final report to follow
08/30/25 07:00 Blood/Venous Blood Culture - Preliminary
No Growth in 4 days- Final report to follow
[2025-09-03 11:27] VITALS: BP 123/65
[2025-09-03 11:35] LABS: Glucose - Point of Care 165 mg/dl (70-99)
[2025-09-03] MEDS: NOVOLOG FLEXPEN-LOW RESISTANCE 1 UNITS SC (12:24)
--- NOTE | 2025-09-03 13:11 | W.DCSUMMARY ---
Addendum entered and electronically signed by Ifeoma Wall MD 09/03/25 13:48:
Attending�addendum:
I saw and evaluated the patient. I reviewed the resident�s note and agree with findings and plan as documented in the resident�s note.��Patient seen and examined at bedside, denies any chest pain , shortness of breath Improved, no abdominal pain,
no nausea, no vomiting, no diarrhea or constipation.
Cleared for discharge as per pulmonology.
Physical exam:
GENERAL : Patient is awake, alert, oriented x3
HEENT: Nonicteric sclerae, PERRLA, EOMI. Oropharynx clear. Moist mucous membranes. Conjunctivae appear well perfused.
CHEST: Chest wall is nontender.
HEART: Regular rate and rhythm without murmurs.
LUNGS: Clear to auscultation bilaterally.
ABDOMEN: Soft, positive bowel sounds, nontender, no organomegaly.
RECTAL: Deferred.
MUSCLES/EXTREMITIES: No abnormal range of motion, no swelling.SKIN: No rash, no excessive bruising, petechiae, or purpura.
NEUROLOGIC: Cranial nerves II-XII intact without motor/sensory deficit.
�
Assessment/plan:
Acute hypoxic respiratory failure secondary to CHF/COPD exacerbation
Acute diastolic CHF
Overall shortness of breath improved.
Will be discharged on oral prednisone and Lasix.
Passed ambulatory pulse ox
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
Paroxysmal A-fib.
Continue carvedilol and Eliquis
CODE STATUS: Full code
DVT prophylaxis: Eliquis
Diet: Cardiac diet
Disposition: Discharge home today
�
Total time spent on today�s encounter was 40 minutes which included time spent in counseling the patient/family regarding diagnosis and treatment plan as listed above, goals of care, and symptom management. Case was discussed with nursing staff,
specialists, and care coordinators/case management. All labs and imaging personally reviewed by me. Remainder the time spent in detailed review of previous records, lab data, imaging, and other medical provider documentation.
Original Note:
Documented by User: Jerry Murphy DO, Resident 09/03/25 13:32
Discharge Summary
Discharge Data
Date of Admission: 08/30/25
Date of Discharge: 09/03/25
Total time spent discharging patient (in min): 45
-
Pending Results: No
Hospital Course
Daljit Hunter is a 75 year old male with a past medical history of paroxysmal atrial fibrillation on Eliquis 100 100s, hypertension, hyperlipidemia, GERD, benign prostatic hyperplasia, as well as documented abnormal pulmonary function test with an
obstructive pattern, a previous echocardiogram with normal ejection fraction, systolic function, and diastolic function, as well as an approximately [id number] smoking history who presented to the emergency department with progressive shortness of
breath and productive cough.
HISTORY OF PRESENT ILLNESS
Upon arrival, the patient endorsed 4 days of progressively worsening shortness of breath that had been associated with cough productive of mucoid sputum. In addition to this, the patient noted that he had been having worsening lower extremity
edema. He noted the swelling is usually limited to the ankle along the lower calf area and usually only occurs with prolonged standing, however over the past few days had been more persistent and higher up the leg. Patient noted that he had
usually been compliant with Lasix use up until about 5 days prior to arrival when he noticed he had run out of the medication. Patient notes that he did not have any refills, and that he thought he can go without the medication for a short period
of time.
ED COURSE
Patient was found to be in acute hypoxic respiratory failure and started on BiPAP and nitroglycerin intravenously in the emergency department. Laboratory studies showed a white count of 11.8 K, normal renal function, normal electrolytes, negative
COVID, and a proBNP of 828. A chest x-ray showed evidence of opacities in the right infrahilar region suspicious for pneumonia.
HOSPITAL COURSE
Nursery Hand was consulted for recommendations given the patient's acute hypoxic respiratory failure. Etiology was thought to be multifactorial with a component of congestive heart failure (in the setting of noncompliance with Lasix over a 5-day
period), COPD exacerbation, and overlying acute bronchitis. Although there was question of a potential pneumonia on the patient's initial chest x-ray, a repeat chest CT did not show pulmonary infiltrate and procalcitonin was negative so pneumonia
was ruled out. Patient received a 4-day course of antibiotics before discontinuation. Over the course of the hospital stay, patient was weaned off BiPAP and eventually has nasal cannula. By the final day of admission, patient was only using BiPAP
at night. Home oxygen assessment did not reveal a need for ambulatory oxygen.
On the day of discharge, patient asymptomatic breathing, saturating 96% on room air. He had some mild scattered wheezes, with rhonchi that cleared with cough. The patient was discharged to home and instructed to continue with his regular dose of
Lasix, and given new prescriptions for Symbicort, Spiriva, and a 5-day course of oral prednisone.
DISCHARGE INSTRUCTIONS
Start Symbicort: Take 2 puffs twice a day.
Start Spiriva: Take 2 puffs daily.
Take prednisone (3 tablets which is 30 mg) once daily for 5 days.
Continue to take Lasix as originally directed.
Follow-up with your primary care provider in less than 1 week.
Complete blood count and basic metabolic panel as ordered by your primary care provider.
Follow-up with the hot dimpling machine operator in 3 to 4 weeks. Phone number on discharge paperwork.
Discharge Plan
-
Patient Disposition: Home (Routine Discharge)
Discharge Diagnosis/Procedures: * Acute Hypoxic Respiratory Failure
* Acute Diastolic Heart Failure
* COPD Exacerbation
* Acute Bronchitis
History of Paroxysmal Atrial Fibrillation
History of Hypertension
History of Benign Prostatic Hyperplasia
History of Gastroesophageal Reflux Disease
History of Nephrolithiasis
Condition: Fair
Diet: 2 Gram Sodium
Activity: As tolerated
Blood Work: CBC and BMP in one week.
Specialty Instructions: Weigh Daily- Call MD for wt gain/loss 3 lbs overnight/5 lbs in 1 week
Activity Restrictions/Additional Instructions:
Follow up with the pulmonolgist in 3-4 weeks. ([phone])
Follow up with your primary care provider in less than 1 week.
Referrals:
Sarah Ventura DO [Active, Pulmonary Medicine] - in three to four weeks
Referral Note: PFT
Mika Buchanan MD [Family Provider, Internal Medicine] - in less than 1 week
Prescriptions:
New
furosemide 40 mg Tablet
40 mg PO DAILY Qty: 30 0RF
prednisone 10 mg Tablet
30 mg PO DAILY 5 Days Qty: 15 0RF
Spiriva Respimat 2.5 mcg/actuation Mist
2 puff inhalation R DAILY Qty: 4 0RF
budesonide-formoterol [Symbicort] 160-4.5 mcg/actuation Hfa Aerosol Inhaler
2 puff inhalation R BID Qty: 1 0RF
Continued
omeprazole 40 MG capsule,delayed release(DR/EC)
40 mg PO DAILY
tamsulosin [Flomax] 0.4 MG capsule
0.4 mg PO BID
finasteride 5 MG tablet
5 mg PO DAILY
Multaq 400 MG tablet
400 mg PO BID
omega 5-hgn-ldj-fish oil [Fish Oil] 1,000 MG capsule
1,000 mg PO BID
carvedilol 25 mg Tablet
25 mg PO BID
famotidine 20 mg Tablet
20 mg PO DAILY
magnesium 250 mg Tablet
250 mg PO DAILY
Centrum Silver Men [id number] mcg Tablet
1 tab PO DAILY
L-Arginine Men's Health 1,000 mg-16.6 mcg-66.6 mcg Tablet
1 tab PO BID
potassium 99 mg Tablet
99 mg PO Q48H
ferrous sulfate 325 mg (65 mg iron) tablet
325 mg PO MOWEFR
albuterol sulfate 90 mcg/actuation HFA aerosol inhaler
1 inh INHALATION R Q4HPRN PRN (Reason: sob/wheezing)
Eliquis 5 MG tablet
5 mg PO BID
Discharge Orders:
Discharge Patient (As Directed); Ordered 09/03/25
Ordered By: Jerry Murphy
Discharge Date and Time
Print Language: TRINIDADIAN

Documented by User: Ifeoma Wall MD 09/03/25 13:48
Discharge Summary
Discharge Data
Date of Admission: 08/30/25
Date of Discharge: 09/03/25
Discharge Plan
-
Patient Disposition: Home (Routine Discharge)
Discharge Diagnosis/Procedures: * Acute Hypoxic Respiratory Failure
* Acute Diastolic Heart Failure
* COPD Exacerbation
* Acute Bronchitis
History of Paroxysmal Atrial Fibrillation
History of Hypertension
History of Benign Prostatic Hyperplasia
History of Gastroesophageal Reflux Disease
History of Nephrolithiasis
Condition: Fair
Diet: 2 Gram Sodium
Activity: As tolerated
Blood Work: CBC and BMP in one week.
Specialty Instructions: Weigh Daily- Call MD for wt gain/loss 3 lbs overnight/5 lbs in 1 week
Activity Restrictions/Additional Instructions:
Follow up with the pulmonolgist in 3-4 weeks. ([phone])
Follow up with your primary care provider in less than 1 week.
Referrals:
Sarah Ventura, DO [Active, Pulmonary Medicine] - in three to four weeks
Referral Note: PFT
Mika Buchanan MD [Family Provider, Internal Medicine] - in less than 1 week
Prescriptions:
New
furosemide 40 mg Tablet
40 mg PO DAILY Qty: 30 0RF
prednisone 10 mg Tablet
30 mg PO DAILY 5 Days Qty: 15 0RF
Spiriva Respimat 2.5 mcg/actuation Mist
2 puff inhalation R DAILY Qty: 4 0RF
budesonide-formoterol [Symbicort] 160-4.5 mcg/actuation Hfa Aerosol Inhaler
2 puff inhalation R BID Qty: 1 0RF
Continued
omeprazole 40 MG capsule,delayed release(DR/EC)
40 mg PO DAILY
tamsulosin [Flomax] 0.4 MG capsule
0.4 mg PO BID
finasteride 5 MG tablet
5 mg PO DAILY
Multaq 400 MG tablet
400 mg PO BID
omega 4-rfq-[id number]-fish oil [Fish Oil] 1,000 MG capsule
1,000 mg PO BID
carvedilol 25 mg Tablet
25 mg PO BID
famotidine 20 mg Tablet
20 mg PO DAILY
magnesium 250 mg Tablet
250 mg PO DAILY
Centrum Silver Men [id number] mcg Tablet
1 tab PO DAILY
L-Arginine Men's Health 1,000 mg-16.6 mcg-66.6 mcg Tablet
1 tab PO BID
potassium 99 mg Tablet
99 mg PO Q48H
ferrous sulfate 325 mg (65 mg iron) tablet
325 mg PO MOWEFR
albuterol sulfate 90 mcg/actuation HFA aerosol inhaler
1 inh INHALATION R Q4HPRN PRN (Reason: sob/wheezing)
Eliquis 5 MG tablet
5 mg PO BID
Discharge Orders:
Discharge Patient (As Directed); Ordered 09/03/25
Ordered By: Jerry Murphy
Discharge Date and Time
Print Language: TRINIDADIAN
--- NOTE | 2025-09-03 13:33 | CM ---
CM met with Daljit and his significant other at bedside today. Daljit feels ready for discharge today, IMM provided and signed copy placed in chart.
Plan: Discharge to home with no needs.
== END 2025-09-03 14:40 | disposition home or self-care (01) | DRG 291 ==
LOC: 3 WEST ACU 10:31
PROVIDERS: Internal Medicine; Physician Assistant; Registered Nurse; Student in an Organized Health Care Education/Training Program; ADMITTING PHYSICIAN Hospitalist; ATTENDING PHYSICIAN General Practice; CONSULT PHYSICIAN Internal Medicine; EMERGENCY PHYSICIAN Emergency Medicine; FAMILY PHYSICIAN Internal Medicine Geriatric Medicine; OTHER PHYSICIAN Internal Medicine Cardiovascular Disease
PROC: 5A09457 Assistance with Respiratory Ventilation, 24-96 Consecutive Hours, Continuous Positive Airway Pressure (ICD-10-PCS; 2025-08-30)
DX: I11.0 Hypertensive heart disease with heart failure (principal); I50.33 Acute on chronic diastolic (congestive) heart failure; J96.01 Acute respiratory failure with hypoxia; J44.1 Chronic obstructive pulmonary disease with (acute) exacerbation; J20.9 Acute bronchitis, unspecified; I48.0 Paroxysmal atrial fibrillation; N40.0 Benign prostatic hyperplasia without lower urinary tract symptoms; K21.9 Gastro-esophageal reflux disease without esophagitis; Z87.442 Personal history of urinary calculi; Z87.891 Personal history of nicotine dependence; Z79.01 Long term (current) use of anticoagulants; N52.9 Male erectile dysfunction, unspecified; Z79.899 Other long term (current) drug therapy; E78.00 Pure hypercholesterolemia, unspecified; Z11.52 Encounter for screening for COVID-19; Z96.651 Presence of right artificial knee joint
CPT/HCPCS: 71045; 71275; 80048; 80053; 82805; 82962; 83605; 83735; 83880; 84100; 84145; 84484; 85025; 85027; 86803; 87040; 87070; 87205; 87502; 87811; 93005; 93306; 94640; 94660; 96365; 96375; 99291; Q9967

== ENCOUNTER → 2025-09-10 08:56 | Outpatient (REF) | payer MEDICARE, BC, SELFPAY ==
[2025-09-10 10:03] LABS: Hematocrit 41.6 % (39.0-52.0); Hemoglobin 13.8 g/dL (13.0-18.0); Mean Corp Hgb Conc. 33.2 g/dL (33.0-37.0); Mean Corpuscular Volume 94.3 fL (80.0-94.0); Nucleated Red Blood Cells % 0 % (-); Platelet Count 289 10^3/uL (130-400); Red Cell Dist. Width 14.2 % (11.5-14.5)
[2025-09-10 10:21] LABS: ALT (SGPT) 35 U/L (0-50); AST (SGOT) 22 U/L (17-59); Albumin 3.9 g/dl (3.5-5.0); Alkaline Phosphatase 73 U/L (38-126); Blood Urea Nitrogen 18 mg/dl (9-20); Calcium 9.0 mg/dl (8.4-10.2); Carbon Dioxide 33 mmol/L (22-30); Chloride 100 mmol/L (98-107); Glucose 112 mg/dl (70-99); Potassium 4.7 mmol/L (3.5-5.1); Sodium 138 mmol/L (135-145); Total Protein 6.7 g/dl (6.3-8.2); eGFR > 60.00
== END ==
LOC: RAD 08:56
PROVIDERS: ATTENDING PHYSICIAN Nurse Practitioner Family
DX: R05.8 Other specified cough (principal); Z79.01 Long term (current) use of anticoagulants; R73.01 Impaired fasting glucose; I10 Essential (primary) hypertension; J96.01 Acute respiratory failure with hypoxia; J44.9 Chronic obstructive pulmonary disease, unspecified; I50.9 Heart failure, unspecified
CPT/HCPCS: 36415; 71046; 80053; 83880; 85025